=== PATIENT | male | born 1960 | race Caucasian/White ===

== ENCOUNTER 2017-07-14 10:44 | Emergency (ER) | payer SELFPAY ==
[~2017-07-14] VITALS: Ht 177.8 cm; Wt 70.0 kg
[2017-07-14 10:48] VITALS: BP 116/95; PULSE 75; RESP 13; TEMP 98.3; O2SAT 96
[2017-07-14] MEDS ORDERED: CEPH-460 PO (12:13)
[2017-07-14] MEDS ORDERED: BACT800T5 PO (12:13)
--- NOTE | 2017-07-14 12:14 | PD ---
HPI Chief Complaint: Laceration/Skin Injury Time Seen by Provider: 11:20 Travel History International Travel<30 days: No Contact w/Intl Traveler<30days: No Traveled to known affect area: No History of Present Illness HPI 57-year-old male presents emergency department for evaluation of laceration to his right second and third digit dorsal aspect caused by mechanical salvage grinder. Injury occurred yesterday around 3 PM. He did not seek medical attention for financial reasons stating he did not want to incur a hospital bill. Today he reports the area was slightly more swollen and painful prompting his visit. He reports normal sensation and full range of motion of the fingers. Tetanus immunization is unknown. PFS Past Medical History Narrative Medical Epilepsy Social History Tobacco Use: No Allergies-Medications (Allergen,Severity, Reaction): Coded Allergies: No Known Allergies (Unverified , 07/14/17) Reported Meds & Prescriptions Reported Meds & Active Scripts Active Keflex (Cephalexin) 500 Mg Cap 500 Mg PO Q6H 10 Days Bactrim DS (Sulfamethoxazole-Trimethoprim) 800-160 Mg Tab 1 Tab PO BID Review of Systems Except as stated in HPI: all other systems reviewed are Neg General / Constitutional: No: Fever Physical Exam Narrative GENERAL: Well-nourished, well-developed patient. SKIN: Focused skin assessment warm/dry. 2 lacerations to the second and third digit. HEAD: Normocephalic. EYES: No scleral icterus. No injection or drainage. NECK: Supple, trachea midline. No JVD or lymphadenopathy. CARDIOVASCULAR: Regular rate and rhythm without murmurs, gallops, or rubs. RESPIRATORY: Breath sounds equal bilaterally. No accessory muscle use. GASTROINTESTINAL: Abdomen soft, non-tender, nondistended. MUSCULOSKELETAL: No cyanosis, or edema. Right hand: Second digit-2.5 cm laceration over the dorsal aspect base of finger. Wound edges 1 mm separation. No tendon injury visualized. No active bleeding. Patient is able to fully flex and extend the finger. Patient has some difficulty with full extension against resistance due to pain. He reports normal sensation brisk cap refill. Third digit-2.5 cm laceration over the dorsal aspect base of finger. Wound edges 1 mm separation. No tendon injury visualized. No active bleeding. Patient is able to fully flex and extend the finger. Patient has some difficulty with full extension against resistance due to pain. He reports normal sensation brisk cap refill Data Data Last Documented VS Vital Signs Date Time Temp Pulse Resp B/P (MAP) Pulse Ox O2 Delivery O2 Flow Rate FiO2 07/14/17 12:30 07/14/17 10:48 98.3 75 13 96 Orders Orders Tetanus/Diphtheria Tox Adult (Tetanus/Di (07/14/17 12:30) Splint Or Brace Apply/Monitor (07/14/17 12:24) Mandatory Outpatient Referral (07/14/17 12:24) Finger Splint (07/13/17 ) [facility] Medical Decision Making Medical Screen Exam Complete: Yes Emergency Medical Condition: Yes Differential Diagnosis Hand laceration, tendon laceration, retained foreign bodies Narrative Course 57-year-old male presents emergency department for evaluation of laceration to his right second and third digit dorsal aspect caused by a mechanical salvage grinder yesterday 3 PM. Patient is somewhat resistant to treatment today for fear of injuring an expensive hospital bill. Patient is currently uninsured. Patient has 2 lacerations over the dorsal aspect to the base of the second and third digit. The wounds are slightly contaminated with dirt. There is surrounding erythema. He has full flexion and extension of the digits. Patient does experience slightly limited full extension against resistance but patient reports this is due to pain not functionality. He reports yesterday he had full painless range of motion. The wounds do appear infected. I offered to contact the on-call hand surgeon, IV antibiotics and possible admission. Patient declined all of these resources stating that he would not stay in the hospital. He is refusing surgical repair if recommended by the hand surgeon. He would like to try oral antibiotics and follow up outpatient with a hand surgeon. I discussed the risk of spreading infection and possible loss of function of the digits if there is an underlying tendon injury. Patient verbalizes understanding and still wishes to leave the emergency department. Patient will be given a prescription for Bactrim and Keflex. The wounds were extensively irrigated. Finger splints applied. And a mandatory referral for hand surgery follow-up. Patient instructed to return in 2 days for wound recheck. He agrees to this plan Diagnosis Primary Impression: Laceration of finger Qualified Codes: S61.210A - Laceration without foreign body of right index finger without damage to nail, initial encounter Referrals: Hand Surgeon Additional Instructions: Take the antibiotics as prescribed. Cleansed the area with soap and water daily and apply clean dry dressing. Where the finger splints daily until follow-up Do not submerge the wound in water. The hospital will be contacting you to her and arrange an appointment with the [employer] hand surgeon. Return to the emergency department in 2 days for wound recheck. Return to the emergency department prior if he developed new or worsening symptoms. Scripts Cephalexin (Keflex) 500 Mg Cap 500 MG PO Q6H for Infection for 10 Days, #40 CAP 0 Refills Prov: Ashlie Burleson 07/14/17 Sulfamethoxazole-Trimethoprim (Bactrim DS) 800-160 Mg Tab 1 TAB PO BID for Infection, #20 TAB 0 Refills Prov: Ashlie Burleson 07/14/17 Disposition: 01 DISCHARGE HOME Condition: Stable Ashlie Burleson Jul 14, 2017 12:14
[2017-07-14] MEDS ORDERED: TETANUS/DIPHTHERIA TOXOID ADULT 0.5 ML VIAL IM ONE (12:30)
== END 2017-07-14 12:51 | disposition home or self-care (01) ==
LOC: NEPK 10:44
DX: S61.210A Laceration without foreign body of right index finger without damage to nail, initial encounter (principal); S61.212A Laceration without foreign body of right middle finger without damage to nail, initial encounter; G40.909 Epilepsy, unspecified, not intractable, without status epilepticus; Z23 Encounter for immunization; W31.89XA Contact with other specified machinery, initial encounter
CPT/HCPCS: 90471; 90714

== ENCOUNTER 2017-10-19 08:56 | Inpatient (IN) | payer OTHER ==
[~2017-10-19] VITALS: Ht 175.3 cm; Wt 67.5 kg
[2017-10-19] VITALS (21 sets, daily range): BP systolic 59–139; BP diastolic 55–84; PULSE 67–94; RESP 18–29; TEMP 97.9–98.1; O2SAT 94–99
[~2017-10-19 08:56] MED LIST: BACT800T5 PO; CEPH-460 PO
[2017-10-19] MEDS ORDERED: SODIUM CHLORIDE 0.9% FLUSH 10 ML FLUSH IVF PRN (09:15)
[2017-10-19] MEDS ORDERED: methylPREDNISolone SOD SUCC 125 MG/2 ML VIAL IV PUSH ONE (09:15)
[2017-10-19] MEDS ORDERED: SODIUM CHLORID 0.9% 500 ML INJ 500 ML IV ONE (09:15)
[2017-10-19] MEDS: RESP: ALBUTEROL 2.5 MG/IPRATROPIUM 0.5 MG NEB (SCH) INH ×2 (09:26→09:27)
--- NOTE | 2017-10-19 09:27 | PD ---
HPI Chief Complaint: Respiratory Distress Time Seen by Provider: 09:07 Travel History International Travel<30 days: No Contact w/Intl Traveler<30days: No Traveled to known affect area: No History of Present Illness HPI The patient is a 57-year-old male who presents emergency department for shortness of breath of one days duration. The patient states his symptoms started this morning with increased work of breathing and shortness of breath. He does complain of chest tightness, shortness of breath, and wheezing. Patient does have a remote history of bronchitis, denies any known history of COPD. He does have a history of tobacco use. The patient denies any history of pulmonary was on, DVT, congestive heart failure, recent hospitalizations, recent travel, or recent surgeries. He denies any significant lower extremity edema. He denies any history congestive heart failure. The patient's primary physician is Dr. Beckett. The patient denies any fever, chills, or sweats. He does complain of being cold with the recent weather changes. He does note his cough is mostly dry and nonproductive. He denies any body aches, nausea, vomiting, diarrhea, or abdominal pain. He does have a history of previous stent placement, however, states the symptoms were different, associated with chest pain. PFSH Past Medical History Cardiovascular Problems: Yes (STENT PLACED JANUARY 2017) Seizures: Yes Thyroid Disease: Yes Past Surgical History Appendectomy: Yes Tonsillectomy: Yes Social History Alcohol Use: No Tobacco Use: Yes Substance Use: No Allergies-Medications (Allergen,Severity, Reaction): Coded Allergies: No Known Allergies (Unverified , 07/14/17) Reported Meds & Prescriptions Reported Meds & Active Scripts Active Keflex (Cephalexin) 500 Mg Cap 500 Mg PO Q6H 10 Days Bactrim DS (Sulfamethoxazole-Trimethoprim) 800-160 Mg Tab 1 Tab PO BID Review of Systems Except as stated in HPI: all other systems reviewed are Neg General / Constitutional: No: Fever HENT: No: Congestion Cardiovascular: Positive: Chest Pain or Discomfort (tightness) Respiratory: Positive: Cough, Shortness of Breath, Wheezing Gastrointestinal: No: Nausea, Vomiting, Abdominal Pain Musculoskeletal: No: Edema Neurologic: No: Dizziness Physical Exam Narrative GENERAL: Awake, alert, pleasant 57-year-old male who appears his stated age and is in moderate respiratory distress SKIN: Focused skin assessment warm/dry. HEAD: Atraumatic. Normocephalic. EYES: Pupils equal and round. No scleral icterus. No injection or drainage. ENT: No nasal bleeding or discharge. Mucous membranes pink and moist. NECK: Trachea midline. No JVD. CARDIOVASCULAR: Regular, tachycardic with a heart rate over 5. RESPIRATORY: Tachypnea with a respiratory rate of 26. Supraclavicular retractions. Type breath sounds with prolonged expiratory phase and wheezing. GASTROINTESTINAL: Abdomen soft, non-tender, nondistended. MUSCULOSKELETAL: No obvious deformities. No clubbing. No cyanosis. No edema. NEUROLOGICAL: Awake and alert. No obvious cranial nerve deficits. Motor grossly within normal limits. Normal speech. PSYCHIATRIC: Appropriate mood and affect; insight and judgment normal. Data Data Last Documented VS Vital Signs Date Time Temp Pulse Resp B/P (MAP) Pulse Ox O2 Delivery O2 Flow Rate FiO2 10/19/17 10:01 98 40 10/19/17 09:23 Nasal Cannula 6.00 10/19/17 08:58 97.9 122/84 (97) Orders Orders Complete Blood Count With Diff (10/19/17 09:14) Comprehensive Metabolic Panel (10/19/17 09:14) B-Type Natriuretic Peptide (10/19/17 09:14) Magnesium (Mg) (10/19/17 09:14) Ckmb (Isoenzyme) Profile (10/19/17 09:14) Troponin I (10/19/17 09:14) Iv Access Insert/Monitor (10/19/17 09:14) Electrocardiogram (10/19/17 09:14) Ecg Monitoring (10/19/17 09:14) Oximetry (10/19/17 09:14) Oxygen Administration (10/19/17 09:14) Chest, Single Ap (10/19/17 09:14) Sodium Chloride 0.9% Flush (Ns Flush) (10/19/17 09:15) Methylprednisolone So Succ Inj (Solumedr (10/19/17 09:15) Albuterol-Ipratropium Neb (Duoneb Neb) (10/19/17 09:15) Sodium Chlorid 0.9% 500 Ml Inj (Ns 500 M (10/19/17 09:15) Resp Bipap / Cpap Non Invas Vt (10/19/17 ) Aspirin Chew (Aspirin Chew) (10/19/17 10:30) Furosemide Inj (Lasix Inj) (10/19/17 10:30) Enoxaparin Inj (Lovenox Inj) (10/19/17 11:30) Consult Cardiology (10/19/17 ) (Hub Use Only)Inp Phy Cons/Ref (10/19/17 ) Admit Order (Ed Use Only) (10/19/17 11:40) Labs Laboratory Tests Test 10/19/17 09:21 White Blood Count 15.5 TH/MM3 Red Blood Count 4.58 MIL/MM3 Hemoglobin 15.7 GM/DL Hematocrit 47.3 % Mean Corpuscular Volume 103.3 FL Mean Corpuscular Hemoglobin 34.4 PG Mean Corpuscular Hemoglobin Concent 33.2 % Red Cell Distribution Width 15.0 % Platelet Count 225 TH/MM3 Mean Platelet Volume 8.7 FL Neutrophils (%) (Auto) 79.3 % Lymphocytes (%) (Auto) 15.5 % Monocytes (%) (Auto) 3.0 % Eosinophils (%) (Auto) 1.2 % Basophils (%) (Auto) 1.0 % Neutrophils # (Auto) 12.3 TH/MM3 Lymphocytes # (Auto) 2.4 TH/MM3 Monocytes # (Auto) 0.5 TH/MM3 Eosinophils # (Auto) 0.2 TH/MM3 Basophils # (Auto) 0.2 TH/MM3 CBC Comment DIFF FINAL Differential Comment Blood Urea Nitrogen 20 MG/DL Creatinine 1.19 MG/DL Random Glucose 248 MG/DL Total Protein 6.5 GM/DL Albumin 3.1 GM/DL Calcium Level 8.0 MG/DL Magnesium Level 2.1 MG/DL Alkaline Phosphatase 133 U/L Aspartate Amino Transf (AST/SGOT) 212 U/L Alanine Aminotransferase (ALT/SGPT) 289 U/L Total Bilirubin 0.3 MG/DL Sodium Level 140 MEQ/L Potassium Level 3.8 MEQ/L Chloride Level 107 MEQ/L Carbon Dioxide Level 24.3 MEQ/L Anion Gap 9 MEQ/L Estimat Glomerular Filtration Rate 63 ML/MIN Total Creatine Kinase 98 U/L Troponin I 0.85 NG/ML B-Type Natriuretic Peptide 806 PG/ML MDM Medical Decision Making Medical Screen Exam Complete: Yes Emergency Medical Condition: Yes Medical Record Reviewed: Yes Interpretation(s) Last Impressions Chest X-Ray 10/19/17913 Signed Impressions: Service Date/Time: October 09:23 - CONCLUSION: 1. Cardiomegaly and findings of congestive heart failure. Cruz Lovell MD Laboratory Tests Test 10/19/17 09:21 White Blood Count 15.5 TH/MM3 Red Blood Count 4.58 MIL/MM3 Hemoglobin 15.7 GM/DL Hematocrit 47.3 % Mean Corpuscular Volume 103.3 FL Mean Corpuscular Hemoglobin 34.4 PG Mean Corpuscular Hemoglobin Concent 33.2 % Red Cell Distribution Width 15.0 % Platelet Count 225 TH/MM3 Mean Platelet Volume 8.7 FL Neutrophils (%) (Auto) 79.3 % Lymphocytes (%) (Auto) 15.5 % Monocytes (%) (Auto) 3.0 % Eosinophils (%) (Auto) 1.2 % Basophils (%) (Auto) 1.0 % Neutrophils # (Auto) 12.3 TH/MM3 Lymphocytes # (Auto) 2.4 TH/MM3 Monocytes # (Auto) 0.5 TH/MM3 Eosinophils # (Auto) 0.2 TH/MM3 Basophils # (Auto) 0.2 TH/MM3 CBC Comment DIFF FINAL Differential Comment Blood Urea Nitrogen 20 MG/DL Creatinine 1.19 MG/DL Random Glucose 248 MG/DL Total Protein 6.5 GM/DL Albumin 3.1 GM/DL Calcium Level 8.0 MG/DL Magnesium Level 2.1 MG/DL Alkaline Phosphatase 133 U/L Aspartate Amino Transf (AST/SGOT) 212 U/L Alanine Aminotransferase (ALT/SGPT) 289 U/L Total Bilirubin 0.3 MG/DL Sodium Level 140 MEQ/L Potassium Level 3.8 MEQ/L Chloride Level 107 MEQ/L Carbon Dioxide Level 24.3 MEQ/L Anion Gap 9 MEQ/L Estimat Glomerular Filtration Rate 63 ML/MIN Total Creatine Kinase 98 U/L Troponin I 0.85 NG/ML B-Type Natriuretic Peptide 806 PG/ML EKG reveals normal sinus rhythm with a rate 89. Mild ST depression noted in lead V3. Low QRS voltage in the extremity leads. Differential Diagnosis Differential diagnosis includes COPD exacerbation, bronchitis, pneumonia, pleural effusion, congestive heart failure, pulmonary embolism, pericardial effusion. Narrative Course IV was established, labs are drawn and sent, and the patient was placed on cardiac telemetry monitoring and continuous pulse oximetry monitoring. Chest x- ray was obtained. The patient was administered Solu-Medrol 125 mg intravenously and duo nebs 3. The patient's chest x-ray appears to have pulmonary edema consistent with congestive heart failure. Therefore, the patient was administered aspirin 162 mg orally. The patient denies chest pain, does state he has shortness of breath. Troponin is positive at 0.85. The patient cannot recall the name of his guest service supervisor to place the stents in last January at [facility]. Therefore, we attempted to obtain records from [facility]. The patient appears to have acute congestive heart failure with elevated troponin and will require admission. The patient is on BiPAP with improvement of his symptoms, the patient will be admitted to [facility]. EKG did reveal mild ST depression V3 but no other changes. A call was placed to the on-call guest service supervisor and to the on-call medical service for admission. I discussed the patient with the on-call guest service supervisor, Dr. Montenegro, who agrees with [employer]. The patient's symptoms did improve, he was taken off of BiPAP and reevaluated. Patient will be admitted to [facility], the on-call medical service. Critical Care Narrative Aggregate critical care time was 35 minutes. Time to perform other separately billable procedures was not included in the critical care time. My time did not include minutes spent treating any other patients simultaneously or on activities that did not directly contribute to the patient's treatment. The services I provided to this patient were to treat and/or prevent clinically significant deterioration that could result in: Anoxia, hypoxia, arrhythmia, congestive heart failure, pulmonary edema, cardiomyopathy, . I provided critical care services requiring my management, as noted below: Chart data review, documentation time, medication orders and management, vital sign assessments/reviewing monitor data, ordering and reviewing lab tests, ordering and interpreting/reviewing x-rays and diagnostic studies, care of the patient and discussion of the patient with the admitting physicians. Physician Communication Physician Communication A call was placed to the on-call guest service supervisor. I discussed the patient with Dr. Montenegro who agrees with [employer]. A call was placed to [facility]. I discussed the patient with Dr. Ladd who agrees with admission. Diagnosis Primary Impression: Congestive heart failure Qualified Codes: I50.9 - Heart failure, unspecified Additional Impression: NSTEMI (non-ST elevated myocardial infarction) Admitting Information Admitting Physician Requests: Admit Condition: Stable Ousmane Barton MD Oct 19, 2017 09:27
[2017-10-19 09:34] LABS: AUTOMATED NEUTROPHIL # 12.3 TH/MM3 (1.8-7.7); BASOPHIL # 0.2 TH/MM3 (0-0.2); EOSINOPHIL # 0.2 TH/MM3 (0-0.4); EOSINOPHIL % 1.2 % (0.0-4.0); HEMATOCRIT 47.3 % (39.0-51.0); HEMOGLOBIN 15.7 GM/DL (13.0-17.0); LYMPH % 15.5 % (9.0-44.0); LYMPHOCYTE # 2.4 TH/MM3 (1.0-4.8); MEAN CELL VOLUME 103.3 FL (80.0-100.0); MEAN CORPUSCULAR HEMOGLOBIN 34.4 PG (27.0-34.0); MEAN CORPUSCULAR HGB CONC 33.2 % (32.0-36.0); MEAN PLATELET VOLUME 8.7 FL (7.0-11.0); MONOCYTE # 0.5 TH/MM3 (0-0.9); NEUT % 79.3 % (16.0-70.0); PLATELET COUNT 225 TH/MM3 (150-450); RED BLOOD COUNT 4.58 MIL/MM3 (4.50-5.90); WHITE BLOOD COUNT 15.5 TH/MM3 (4.0-11.0)
--- NOTE | 2017-10-19 09:45 | RADRPT ---
EXAM DATE/TIME: 10/19/2017 09:23 [place] COMPARISON: No previous studies available for comparison. INDICATIONS : Short of breath. Cough. MEDICAL HISTORY : Smoking. SURGICAL HISTORY : None. ENCOUNTER: Initial ACUITY: 2 days PAIN SCORE: 0/10 LOCATION: Bilateral chest FINDINGS: The cardiac silhouette is enlarged in transverse diameter. There are findings of congestive heart my lure with interstitial and alveolar opacity bilaterally. No pleural effusions are identified. CONCLUSION: 1. Cardiomegaly and findings of congestive heart failure. Cruz Lovell MD on October 19, 2017 at 9:43 Board Certified Radiologist. This report was verified electronically.
[2017-10-19 10:19] LABS: ALBUMIN 3.1 GM/DL (3.4-5.0); ALKALINE PHOSPHATASE 133 U/L (45-117); ALT (GPT) 289 U/L (12-78); AST (GOT) 212 U/L (15-37); BICARBONATE 24.3 MEQ/L (21.0-32.0); BLOOD UREA NITROGEN 20 MG/DL (7-18); CHLORIDE 107 MEQ/L (98-107); CREATININE 1.19 MG/DL (0.60-1.30); GLOMERULAR FILTRATION RATE 63 ML/MIN (>89); GLUCOSE,RANDOM 248 MG/DL (74-106); MAGNESIUM 2.1 MG/DL (1.5-2.5); SODIUM (NA) 140 MEQ/L (136-145); TOTAL BILIRUBIN ADULT 0.3 MG/DL (0.2-1.0); TOTAL PROTEIN 6.5 GM/DL (6.4-8.2)
[2017-10-19 10:29] LABS: TROPONIN I 0.85 NG/ML (0.02-0.05)
[2017-10-19] MEDS ORDERED: ASPIRIN 81 MG CHEW TAB CHEW ONE (10:30)
[2017-10-19] MEDS ORDERED: FUROSEMIDE 40 MG/4 ML VIAL IV PUSH ONE (10:30)
[2017-10-19] MEDS ORDERED: ENOXAPARIN SODIUM 80 MG/0.8 ML SYRINGE SQ ONE (11:30)
[2017-10-19] MEDS ORDERED: FLUMAZENIL 0.5 MG/5 ML VIAL IV PUSH PRN (12:30)
[2017-10-19] MEDS ORDERED: oxyCODONE/ACETAMINOPHEN 10 MG/325 MG TAB PO PRN (12:30)
[2017-10-19] MEDS ORDERED: ONDANSETRON HCL 4 MG/2 ML VIAL IVP PRN (12:30)
[2017-10-19] MEDS ORDERED: SODIUM CHLORIDE 0.9% FLUSH 10 ML FLUSH IV FLUSH PRN ×2 (12:30)
[2017-10-19] MEDS ORDERED: cloNIDine HCL 0.1 MG TAB PO PRN (12:30)
[2017-10-19] MEDS ORDERED: RESP: ALBUTEROL 2.5 MG/IPRATROPIUM 0.5 MG NEB (PRN) NEB (12:30)
[2017-10-19] MEDS ORDERED: ALPRAZolam 0.25 MG TAB PO PRN (12:30)
[2017-10-19] MEDS ORDERED: LORazepam 1 MG TAB PO PRN (12:30)
[2017-10-19] MEDS ORDERED: oxyCODONE/ACETAMINOPHEN 5 MG/325 MG TAB PO PRN (12:30)
[2017-10-19] MEDS ORDERED: MORPHINE SULFATE 2 MG/ML INJ IV PUSH PRN ×2 (12:30)
[2017-10-19] MEDS ORDERED: METOCLOPRAMIDE HCL 10 MG/2 ML VIAL IV PUSH PRN (12:30)
[2017-10-19] MEDS ORDERED: SENNOSIDES 8.6 MG TAB PO PRN (12:30)
[2017-10-19] MEDS ORDERED: ACETAMINOPHEN 325 MG TAB PO PRN ×3 (12:30)
[2017-10-19] MEDS ORDERED: LORazepam 2 MG/ML VIAL IV PUSH PRN ×4 (12:30)
[2017-10-19] MEDS ORDERED: NITROGLYCERIN 0.4 MG SL 25 TABS/BTL SL PRN (12:30)
[2017-10-19] MEDS ORDERED: ZOLPIDEM TARTRATE 5 MG TAB PO PRN (12:30)
[2017-10-19] MEDS ORDERED: LORazepam 2 MG TAB PO PRN (12:30)
[2017-10-19] MEDS ORDERED: HALOPERIDOL LACTATE 5 MG/ML AMP IM PRN (12:30)
[2017-10-19] MEDS ORDERED: NALOXONE HCL 0.4 MG/ML AMP IV PUSH PRN (12:30)
[2017-10-19] MEDS ORDERED: LACTULOSE SYRUP 20 GM/30 ML CUP PO PRN (12:30)
[2017-10-19] MEDS ORDERED: MAGNESIUM HYDROXIDE SUSP 30 ML CUP PO PRN (12:30)
[2017-10-19] MEDS ORDERED: BISACODYL 10 MG SUPP RECTAL PRN (12:30)
--- NOTE | 2017-10-19 12:45 | HHI.HP ---
HPI Service [facility] Primary Care Physician Unknown ADDI Admission Diagnosis congestive heart failure, NSTEMI Diagnoses: (1) Tobacco abuse Diagnosis: Secondary (2) Noncompliance Diagnosis: Secondary (3) COPD (chronic obstructive pulmonary disease) Diagnosis: Secondary (4) Seizure Diagnosis: Secondary (5) Hypothyroidism Diagnosis: Secondary (6) Coronary artery disease Diagnosis: Secondary (7) NSTEMI (non-ST elevated myocardial infarction) Diagnosis: Principal (8) Congestive heart failure Diagnosis: Principal Chief Complaint: Shortness of breath/respiratory distress Travel History International Travel<30 Days: No Contact w/Intl Traveler <30 Da: No Traveled to Known Affected Are: No History of Present Illness Patient is a 57-year-old gentleman. He presented to the emergency department here at [facility] chief complaint of shortness of breath for 1 day. Patient states his symptoms started this morning with increased work of breathing and shortness of breath. Patient complained of chest tightness, shortness of breath, and wheezing. Does have a history of bronchitis.. Denies any known history of COPD. Does has a history of tobacco use still actively smoking used to smoke about 2 packs now smokes only about one pack per day. Denies any history of pulmonary embolism, denies any history of DVT, denies any history of congestive heart failure, or any recent hospitalizations. Denies any edema. Denies any fever chills or sweats. Does have a positive cough, denies any body aches or nausea, vomiting, diarrhea, or abdominal pain. He has history of a previous cardiac stent placed at [facility] in January 2017 Was supposed to be on blood thinners but are not sure if he is actually taking anything for this Review of Systems Constitutional: COMPLAINS OF: Fatigue, Chills, DENIES: Diaphoretic episodes, Fever, Weight gain, Weight loss, Dizziness, Change in appetite, Night Sweats Endocrine: DENIES: Heat/cold intolerance, Polydipsia, Polyuria, Polyphagia Eyes: DENIES: Blurred vision, Diplopia, Eye inflammation, Eye pain, Vision loss , Photosensitivity Ears, nose, mouth, throat: DENIES: Tinnitus, Hearing loss, Vertigo, Nasal discharge, Oral lesions, Throat pain Respiratory: COMPLAINS OF: Cough, Wheezing, Sputum production, Shortness of breath, DENIES: Apneas, Snoring, Hemoptysis Cardiovascular: COMPLAINS OF: Chest pain, Dyspnea on Exertion, Orthopnea, DENIES: Palpitations, Syncope, PND, Lower Extremity Edema Gastrointestinal: DENIES: Abdominal pain, Black stools, Bloody stools, Constipation Genitourinary: DENIES: Sexual dysfunction, Urinary frequency, Urinary incontinence, Urgency Musculoskeletal: DENIES: Joint pain, Muscle aches, Stiffness, Joint Swelling, Back pain Integumentary: DENIES: Abnormal pigmentation, Nail changes, Pruritus, Rash Hematologic/lymphatic: DENIES: Bruising, Lymphadenopathy Immunologic/allergic: DENIES: Eczema, Urticaria Neurologic: COMPLAINS OF: Seizures, DENIES: Abnormal gait, Headache, Localized weakness, Paresthesias, Speech Problems, Tremor, Poor Balance Psychiatric: DENIES: Anxiety, Confusion, Mood changes, Depression, Hallucinations, Agitation, Suicidal Ideation Except as stated in HPI: all other systems reviewed are Neg Past Family Social History Past Medical History Coronary artery disease with history of stent Seizure disorder Hypothyroidism Noncompliance Past Surgical History Coronary artery stent Appendectomy tonsillectomy Reported Medications Reported Meds & Active Scripts Active Keflex (Cephalexin) 500 Mg Cap 500 Mg PO Q6H 10 Days Bactrim DS (Sulfamethoxazole-Trimethoprim) 800-160 Mg Tab 1 Tab PO BID Allergies: Coded Allergies: No Known Allergies (Unverified , 07/14/17) Active Ordered Medications Current Medications Sodium Chloride (NS Flush) 2 ml UNSCH PRN IVF FLUSH AFTER USING IV ACCESS; Start 10/19/17 at 09:15 Methylprednisolone Sodium Succinate (SoluMEDROL INJ) 125 mg ONCE ONCE IV PUSH Last administered on 10/19/17at 10:50; Start 10/19/17 at 09:15; Stop 10/19/17 at 09: 17; Status DC Albuterol/ Ipratropium (Duoneb Neb) 1 ampule Q15M INH Last administered on at 09:27; Start 10/19/17 at 09:15; Stop 10/19/17 at 09:46; Status DC Sodium Chloride 500 ml @ 500 mls/hr BOLUS ONCE IV Last administered on at 10:49; Start 10/19/17 at 09:15; Stop 10/19/17 at 10:14; Status DC Aspirin (Aspirin Chew) 162 mg ONCE ONCE CHEW Last administered on 10/19/17at 11: 17; Start 10/19/17 at 10:30; Stop 10/19/17 at 10:31; Status DC Furosemide (Lasix Inj) 40 mg ONCE ONCE IV PUSH Last administered on 10/19/17at 11:18; Start 10/19/17 at 10:30; Stop 10/19/17 at 10:31; Status DC Enoxaparin Sodium (Lovenox Inj) 70 mg ONCE ONCE SQ ; Start 10/19/17 at 11:30; Stop 10/19/17 at 11:31; Status DC Social History Smokes at least a pack per day had previously been smoking up to 2 Denies any alcohol or illicits Physical Exam Vital Signs Vital Signs Date Time Temp Pulse Resp B/P (MAP) Pulse Ox O2 Delivery O2 Flow Rate FiO2 10/19/17 10:01 98 40 10/19/17 09:23 94 Nasal Cannula 6.00 10/19/17 09:12 95 Nasal Cannula 6.00 10/19/17 09:09 92 Nasal Cannula 6.00 10/19/17 08:58 97.9 122/84 (97) Room Air Physical Exam GENERAL: This is a well-nourished, well-developed patient, in moderate distress. SKIN: No rashes, ecchymoses or lesions. Cool and dry. HEAD: Atraumatic. Normocephalic. No temporal or scalp tenderness. EYES: Pupils equal round and reactive. Extraocular motions intact. No scleral icterus. No injection or drainage. ENT: Nose without bleeding, purulent drainage or septal hematoma. Throat without erythema, tonsillar hypertrophy or exudate. Uvula midline. Airway patent. NECK: Trachea midline. No JVD or lymphadenopathy. Supple, nontender, no meningeal signs. CARDIOVASCULAR: Regular rate and rhythm without murmurs, gallops, or rubs. S1 and S2 no S3 or S4 RESPIRATORY: Clear to auscultation. Breath sounds equal bilaterally. Positive wheezes some rhonchi and some rales at bases. GASTROINTESTINAL: Abdomen soft, non-tender, nondistended. No hepato-splenomegaly , or palpable masses. No guarding. MUSCULOSKELETAL: Extremities without clubbing, cyanosis, or edema. No joint tenderness, effusion, or edema noted. No calf tenderness. Negative Homans sign bilaterally. NEUROLOGICAL: Awake and alert. Cranial nerves II through XII intact. Motor and sensory grossly within normal limits. 4 out of 5 muscle strength in all muscle groups. Normal speech. Insight and judgment is limited Mood and behaviors appropriate Laboratory Laboratory Tests Test 10/19/17 09:21 White Blood Count 15.5 Red Blood Count 4.58 Hemoglobin 15.7 Hematocrit 47.3 Mean Corpuscular Volume 103.3 Mean Corpuscular Hemoglobin 34.4 Mean Corpuscular Hemoglobin Concent 33.2 Red Cell Distribution Width 15.0 Platelet Count 225 Mean Platelet Volume 8.7 Neutrophils (%) (Auto) 79.3 Lymphocytes (%) (Auto) 15.5 Monocytes (%) (Auto) 3.0 Eosinophils (%) (Auto) 1.2 Basophils (%) (Auto) 1.0 Neutrophils # (Auto) 12.3 Lymphocytes # (Auto) 2.4 Monocytes # (Auto) 0.5 Eosinophils # (Auto) 0.2 Basophils # (Auto) 0.2 CBC Comment DIFF FINAL Differential Comment Blood Urea Nitrogen 20 Creatinine 1.19 Random Glucose 248 Total Protein 6.5 Albumin 3.1 Calcium Level 8.0 Magnesium Level 2.1 Alkaline Phosphatase 133 Aspartate Amino Transf (AST/SGOT) 212 Alanine Aminotransferase (ALT/SGPT) 289 Total Bilirubin 0.3 Sodium Level 140 Potassium Level 3.8 Chloride Level 107 Carbon Dioxide Level 24.3 Anion Gap 9 Estimat Glomerular Filtration Rate 63 Total Creatine Kinase 98 Troponin I 0.85 B-Type Natriuretic Peptide 806 Result Diagram: 10/19/1792010/19/17920 Imaging Last Impressions Chest X-Ray 10/19/17913 Signed Impressions: Service Date/Time: October 09:23 - CONCLUSION: 1. Cardiomegaly and findings of congestive heart failure. MD Josue Vazquez VTE Risk Assessment Josue VTE Risk Assessment: Mod/High Risk (score >= 2) Caprini Risk Assessment Model Point Value = 1 Point Value = 2 Point Value = 3 Point Value = 5 Age 41-60 Minor surgery BMI > 25 kg/m2 Swollen legs Varicose veins or History of unexplained or recurrent spontaneous Oral contraceptives or hormone replacement Sepsis (< 1 month) Serious lung disease, including pneumonia (< 1 month) Abnormal pulmonary function Acute myocardial infarction Congestive heart failure (< 1 month) History of inflammatory bowel disease Medical patient at bed rest Age 61-74 Arthroscopic surgery Major open surgery (> 45 min) Laparoscopic surgery (> 45 min) Malignancy Confined to bed (> 72 hours) Immobilizing plaster cast Central venous access Age >= 75 History of VTE Family history of VTE Factor V Leiden Prothrombin [id number] Lupus anticoagulant Anticardiolipin antibodies Elevated serum homocysteine Heparin-induced thrombocytopenia Other congenital or acquired thrombophilia Stroke (< 1 month) Elective arthroplasty Hip, pelvis, or leg fracture Acute spinal cord injury (< 1 month) Prophylaxis Regimen Total Risk Factor Score Risk Level Prophylaxis Regimen 0-1 Low Early ambulation 2 Moderate Order ONE of the following: *Sequential Compression Device (SCD) *Heparin 5000 units SQ BID 3-4 Higher Order ONE of the following medications: *Heparin 5000 units SQ TID *Enoxaparin/Lovenox 40 mg SQ daily (WT < 150 kg, CrCl > 30 mL/min) *Enoxaparin/Lovenox 30 mg SQ daily (WT < 150 kg, CrCl > 10-29 mL/min) *Enoxaparin/Lovenox 30 mg SQ BID (WT < 150 kg, CrCl > 30 mL/min) AND/OR *Sequential Compression Device (SCD) 5 or more Highest Order ONE of the following medications: *Heparin 5000 units SQ TID (Preferred with Epidurals) *Enoxaparin/Lovenox 40 mg SQ daily (WT < 150 kg, CrCl > 30 mL/min) *Enoxaparin/Lovenox 30 mg SQ daily (WT < 150 kg, CrCl > 10-29 mL/min) *Enoxaparin/Lovenox 30 mg SQ BID (WT < 150 kg, CrCl > 30 mL/min) AND *Sequential Compression Device (SCD) Assessment and Plan Assessment and Plan Congestive heart failure Will diurese with Lasix will replace with potassium We'll get an echocardiogram We'll trend troponins Consult cardiology a.m. labs COPD continue on Mucinex Continue on steroids Continue on DuoNeb's Hold off on antibiotics at this Hypothyroidism check TSH and free T4 obtain home medication dose of Synthroid Seizure disorder check a Dilantin level obtained his home dose of Dilantin and restart if able Non-ST elevation KS consult cardiology Trend troponins Echo Aspirin and Plavix and Lovenox Tobacco abuse recommend smoking cessation NicoDerm patch 14 mg daily Dyslipidemia can continue on Lipitor Noncompliance recommend patient take his medications and follow-up after discharge - Consult case management DVT prophylaxis with Lovenox GI prophylaxis with Pepcid Code Status FULL CODE Discussed Condition With PT AND RN AND ER PHYSICIAN Physician Certification 2 Midnight Certification Type: Admission for Inpatient Services Order for Inpatient Services The services are ordered in accordance with Medicare regulations or non- Medicare payer requirements, as applicable. In the case of services not specified as inpatient-only, they are appropriately provided as inpatient services in accordance with the 2-midnight benchmark. Estimated LOS (days): 3 3 days is the estimated time the patient will need to remain in the hospital, assuming treatment plan goals are met and no additional complications. Post-Hospital Plan: Not yet determined Problem Qualifiers (1) Congestive heart failure: Qualified Codes: I50.9 - Heart failure, unspecified Vinod Ladd DO Oct 19, 2017 12:45
[2017-10-19] MEDS ORDERED: NICOTINE 14 MG/24 HR PATCH T-DERMAL ONE (13:00)
[2017-10-19] MEDS ORDERED: LEVO88TA2 PO (13:13)
[2017-10-19] MEDS ORDERED: DILA100C PO (13:13)
[2017-10-19] MEDS ORDERED: CLOPIDOGREL 300 MG TAB PO ONE (14:00)
[2017-10-19] MEDS: FAMOTIDINE 20 MG TAB PO SCH ×2 (14:35→21:33)
[2017-10-19] MEDS: guaiFENesin E.R. 600 MG TAB PO SCH ×2 (14:35→21:38)
[2017-10-19] MEDS: NITROGLYCERIN 2% OINT 1 GM PACKET TOP SCH ×2 (14:36→21:31)
[2017-10-19] MEDS: CLOPIDOGREL 75 MG TAB PO SCH (14:36)
--- NOTE | 2017-10-19 15:08 | ECHRPT ---
Indication: CONCLUSIONS The left ventricular systolic function is severely reduced with an estimated ejection fraction in th e range of 25-30%. Wall thickness is measured at the upper limits of normal. Mildly dilated left ventricle. Global hypokinesis worse of the inferoposterior kaur. Mild mitral valve regurgitation. There is moderate tricuspid regurgitation. The estimated pulmonary arterial pressure is 61 mmHg. BP: / HR: 83 Rhythm: Sinus MEASUREMENTS (Male / Female) Normal Values Technical Quality:Good 2D ECHO LV Diastolic Diameter PLAX 5.3 cm 4.2 - 5.9 / 3.9 - 5.3 cm LV Systolic Diameter PLAX 4.4 cm IVS Diastolic Thickness 1.0 cm 0.6 - 1.0 / 0.6 - 0.9 cm LVPW Diastolic Thickness 1.0 cm 0.6 - 1.0 / 0.6 - 0.9 cm LV Relative Wall Thickness 0.4 LVOT Diameter 1.8 cm M-MODE Aortic Root Diameter MM 3.0 cm LA Systolic Diameter MM 4.2 cm LA Ao Ratio MM 1.4 DOPPLER AV Peak Velocity 81.9 cm/s AV Peak Gradient 2.7 mmHg LVOT Peak Velocity 73.1 cm/s LVOT Peak Gradient 2.1 mmHg AV Area Cont Eq pk 2.3 cm MR Peak Velocity 314.0 cm/s MR Peak Gradient 39.4 mmHg LV E' Lateral Velocity 6.6 cm/s LV E' Septal Velocity 5.7 cm/s TR Peak Velocity 357.0 cm/s TR Peak Gradient 51.0 mmHg Right Atrial Pressure 10.0 mmHg Pulmonary Artery Systolic Pressu 61.0 mmHg Right Ventricular Systolic Press 61.0 mmHg PV Peak Velocity 86.9 cm/s PV Peak Gradient 3.0 mmHg FINDINGS LEFT VENTRICLE The left ventricular systolic function is severely reduced with an estimated ejection fraction in th e range of 25-30%. Wall thickness is measured at the upper limits of normal. Mildly dilated left ventricle. Global hypokinesis worse of the inferoposterior kaur. RIGHT VENTRICLE Normal right ventricular size and systolic function. LEFT ATRIUM The left atrial size is normal. RIGHT ATRIUM The right atrial size is normal. ATRIAL SEPTUM Normal atrial septal thickness without atrial level shunting by limited color doppler interrogation. AORTA The aortic root and proximal ascending aorta are normal in size on limited imaging. MITRAL VALVE Mild mitral valve regurgitation. AORTIC VALVE Trileaflet aortic valve. No aortic valve stenosis or regurgitation. TRICUSPID VALVE There is moderate tricuspid regurgitation. The estimated pulmonary arterial pressure is 61 mmHg. PULMONARY VALVE No pulmonary valve regurgitation or stenosis. VESSELS The inferior vena cava is normal in size. PERICARDIUM No pericardial effusion. Flakito Montenegro MD Edited by: [employer] (Electronically Signed) Final Date:19 October 2017 14:48 Amended: 19 October 2017 15:07
--- NOTE | 2017-10-19 15:09 | MB ---
cc: JUANA MOELLER M.D. DATE OF CONSULTATION: 10/19/2017 REASON FOR CONSULTATION Evaluation of shortness of breath, CHF. HISTORY OF PRESENT ILLNESS Cornell Leyva is a 57-year-old man admitted to the hospital with congestive heart failure. The patient has known heart disease. He was hospitalized at [facility] in January. He had a cardiac catheterization by Dr. Alcazar, February 06. At that time his coronary circulation was left dominant and his left circumflex artery was totally occluded. This was stented according to the report with a Premiere 3.0 x 34 mm stent at 12 atmospheres. He also had balloon angioplasty of the marginal branch with a 2-1/2 mm balloon. The patient took clopidogrel for 1 month and he did not get it refilled. He complained about the cost but never bothered to check with Susan Madrid his primary care nurse practitioner to see about getting it refilled. Of note, during that admission he initially presented with atrial fibrillation and a heart rate of 110. He is a lifelong smoker with a family history of heart disease and continues to smoke. He has not given up smoking despite having the heart attack and having the stent. I asked him about chest pain or chest tightness or chest heaviness, I could not elicit any of that from him despite things he said to the other doctors who had been in to see him. PAST MEDICAL HISTORY Past medical history includes: 1. A seizure disorder which he is treated with Keppra. 2. Hypothyroidism. PAST SURGICAL HISTORY 1. Appendectomy. 2. Tonsillectomy. 3. Adenoidectomy. 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 He is single. He continues to smoke marijuana as well as cigarettes. FAMILY HISTORY His father had coronary artery disease in his 60s. MEDICATION Medications are charted. PHYSICAL EXAMINATION GENERAL: Adequately developed, adequately nourished white male, no acute distress. HEENT: Exam notable for poor dentition. NECK: Positive for JVD but no bruits. CHEST: Shows diminished breath sounds and wheezing at the bases. CARDIAC: S1 and S2, S3, regular rate and rhythm. There is no murmur. ABDOMEN: Abdomen is soft. EXTREMITIES: Reveal no peripheral edema. NEUROLOGIC: Neurologically he is alert. EKG Shows sinus rhythm with very low limb lead voltage, left atrial abnormality, mild diffuse ST changes in the precordial leads. IMAGING STUDIES Chest x-ray showing CHF. LABORATORY BUN 20, creatinine 1.19, AST elevated at 212, ALT elevated at 289, alkaline phosphatase elevated at 133. Troponin elevated at 0.85, BNP 806, albumin 3.1. IMPRESSION Noncompliant 57-year-old man with known ischemic heart disease but never bothered to quit smoking or continue getting his meds refilled. I think it is very likely that his stent of the circumflex is closed, considering it was a completely total vessel before it was stented, at this point there is very little to be gained for trying to open it again. His low limb lead voltage makes one suspicious that his LV function has taken a severe decline. RECOMMENDATIONS I am going to start WILVER inhibitors in addition to Beta-srinivasa, aspirin and Plavix and statin. Will get an echo Doppler to assess LV function. Further therapy to be determined. MD BRANDON Paul/LISA /1:42 PM /2:19 PM
[2017-10-19] MEDS: LISINOPRIL 5 MG TAB PO SCH (15:48)
[2017-10-19] MEDS: RESP: ALBUTEROL 2.5 MG/IPRATROPIUM 0.5 MG NEB (SCH) NEB ×2 (16:51→20:53)
[2017-10-19] MEDS: FUROSEMIDE 40 MG/4 ML VIAL IV PUSH SCH (18:00)
[2017-10-19] MEDS: methylPREDNISolone SOD SUCC 40 MG/1 ML VIAL IV PUSH SCH ×2 (18:08→23:36)
[2017-10-19 20:50] LABS: TROPONIN I 2.34 NG/ML (0.02-0.05)
[2017-10-19] MEDS: CARVEDILOL 3.125 MG TAB PO SCH (21:00)
[2017-10-19] MEDS: DOCUSATE SODIUM 50 MG/SENNA 8.6 MG TAB PO SCH (21:00)
[2017-10-19] MEDS: SODIUM CHLORIDE 0.9% FLUSH 10 ML FLUSH IV FLUSH SCH (21:00)
[2017-10-19] MEDS ORDERED: SODIUM CHLORIDE 0.9% FLUSH 10 ML FLUSH IV FLUSH SCH (21:00)
[2017-10-19] MEDS: ATORVASTATIN 10 MG TAB PO SCH (21:32)
[2017-10-19] MEDS: ENOXAPARIN SODIUM 80 MG/0.8 ML SYRINGE SQ SCH (21:33)
--- NOTE | 2017-10-19 22:33 | EKG ---
Date Performed: 10/19/2017 Time Performed: 11:11:38 PTAGE: 57 years EKG: Sinus rhythm MARKED LEFT AXIS DEVIATION LOW QRS VOLTAGE IN EXTREMITY LEADS ST DEPRESSION, CONSIDER SUBENDOCARDIAL INJURY ABNORMAL ECG NO PREVIOUS TRACING DOCTOR: Andre Mcdonald Interpretating Date/Time 10/19/2017 22:33:03
[2017-10-20] VITALS (27 sets, daily range): BP systolic 85–96; BP diastolic 50–62; PULSE 61–88; RESP 18; TEMP 97.3–98.2; O2SAT 94–99
[2017-10-20 02:14] LABS: ALKALINE PHOSPHATASE 108 U/L (45-117); ALT (GPT) 210 U/L (12-78); AST (GOT) 76 U/L (15-37); BICARBONATE 25.7 MEQ/L (21.0-32.0); BLOOD UREA NITROGEN 21 MG/DL (7-18); CHLORIDE 107 MEQ/L (98-107); CHOLESTEROL 131 MG/DL (120-200); CHOLESTEROL/ HDL RATIO 2.54 RATIO; CREATININE 0.91 MG/DL (0.60-1.30); FREE T4 1.32 NG/DL (0.76-1.46); GLOMERULAR FILTRATION RATE 86 ML/MIN (>89); GLUCOSE,RANDOM 117 MG/DL (74-106); HDL CHOLESTEROL 51.5 MG/DL (40.0-60.0); LDL CHOLESTEROL 71 MG/DL (0-99); MAGNESIUM 1.9 MG/DL (1.5-2.5); PHOSPHORUS 3.5 MG/DL (2.5-4.9); SODIUM (NA) 142 MEQ/L (136-145); TOTAL BILIRUBIN ADULT 0.4 MG/DL (0.2-1.0); TOTAL PROTEIN 5.9 GM/DL (6.4-8.2); TRIGLYCERIDES 44 MG/DL (42-150)
[2017-10-20 02:17] LABS: TROPONIN I 2.21 NG/ML (0.02-0.05)
[2017-10-20] MEDS: NITROGLYCERIN 2% OINT 1 GM PACKET TOP SCH ×4 (03:04→20:00)
[2017-10-20] MEDS: RESP: ALBUTEROL 2.5 MG/IPRATROPIUM 0.5 MG NEB (SCH) NEB ×4 (04:26→21:59)
[2017-10-20 05:46] LABS: AUTOMATED NEUTROPHIL # 8.2 TH/MM3 (1.8-7.7); BASOPHIL % 0.3 % (0.0-2.0); EOSINOPHIL % 0.1 % (0.0-4.0); HEMATOCRIT 40.9 % (39.0-51.0); HEMOGLOBIN 13.8 GM/DL (13.0-17.0); LYMPH % 13.8 % (9.0-44.0); LYMPHOCYTE # 1.4 TH/MM3 (1.0-4.8); MEAN CELL VOLUME 100.8 FL (80.0-100.0); MEAN CORPUSCULAR HGB CONC 33.7 % (32.0-36.0); MEAN PLATELET VOLUME 9.1 FL (7.0-11.0); MONO % 4.8 % (0.0-8.0); MONOCYTE # 0.5 TH/MM3 (0-0.9); PLATELET COUNT 156 TH/MM3 (150-450); RED BLOOD COUNT 4.05 MIL/MM3 (4.50-5.90); RED CELL DISTRIBUTION WIDTH 14.3 % (11.6-17.2); WHITE BLOOD COUNT 10.1 TH/MM3 (4.0-11.0)
[2017-10-20] MEDS: methylPREDNISolone SOD SUCC 40 MG/1 ML VIAL IV PUSH SCH ×3 (06:05→21:09)
[2017-10-20] MEDS: ENOXAPARIN SODIUM 80 MG/0.8 ML SYRINGE SQ SCH (08:12)
[2017-10-20] MEDS: FUROSEMIDE 40 MG/4 ML VIAL IV PUSH SCH (08:13)
[2017-10-20] MEDS: REMOVE OLD PATCH T-DERMAL SCH (08:13)
[2017-10-20] MEDS: CARVEDILOL 3.125 MG TAB PO SCH (08:13)
[2017-10-20] MEDS: ASPIRIN 81 MG CHEW TAB PO SCH (08:14)
[2017-10-20] MEDS: guaiFENesin E.R. 600 MG TAB PO SCH ×2 (08:14→21:10)
[2017-10-20] MEDS: CLOPIDOGREL 75 MG TAB PO SCH (08:14)
[2017-10-20] MEDS: LISINOPRIL 5 MG TAB PO SCH (08:15)
[2017-10-20] MEDS: SODIUM CHLORIDE 0.9% FLUSH 10 ML FLUSH IV FLUSH SCH ×2 (08:15→21:12)
[2017-10-20] MEDS: FAMOTIDINE 20 MG TAB PO SCH ×2 (08:15→21:09)
[2017-10-20] MEDS: DOCUSATE SODIUM 50 MG/SENNA 8.6 MG TAB PO SCH ×2 (08:15→21:00)
[2017-10-20] MEDS ORDERED: NICOTINE 14 MG/24 HR PATCH T-DERMAL SCH (09:00)
[2017-10-20] MEDS ORDERED: ASPIRIN EC 325 MG TABEC PO SCH (09:00)
--- NOTE | 2017-10-20 09:56 | HHI.PR ---
Subjective Remarks Patient is a 57-year-old gentleman. He presented to the emergency department here at [facility] chief complaint of shortness of breath for 1 day. Patient states his symptoms started this morning with increased work of breathing and shortness of breath. Patient complained of chest tightness, shortness of breath, and wheezing. Does have a history of bronchitis.. Denies any known history of COPD. Does has a history of tobacco use still actively smoking used to smoke about 2 packs now smokes only about one pack per day. Denies any history of pulmonary embolism, denies any history of DVT, denies any history of congestive heart failure, or any recent hospitalizations. Denies any edema. Denies any fever chills or sweats. Does have a positive cough, denies any body aches or nausea, vomiting, diarrhea, or abdominal pain. He has history of a previous cardiac stent placed at [facility] in January 2017 Was supposed to be on blood thinners but are not sure if he is actually taking anything for this 1-5 discussed with patient and RN and cardiology Blood pressure is borderline EF is 25% or so Patient may require cardiac catheterization if he consents to it Started on beta srinivasa and WILVER inhibitor Objective Vitals Vital Signs Date Time Temp Pulse Resp B/P (MAP) Pulse Ox O2 Delivery O2 Flow Rate FiO2 10/20/17 09:11 94 Nasal Cannula 1.00 10/20/17 09:00 74 10/20/17 08:00 62 10/20/17 07:00 98.0 70 18 92/62 (72) 98 10/20/17 07:00 68 10/20/17 07:00 98 Nasal Cannula 1.00 10/20/17 06:00 70 10/20/17 05:00 72 10/20/17 04:00 68 10/20/17 03:10 98.2 66 18 87/60 (69) 99 10/20/17 03:10 99 Nasal Cannula 2.00 10/20/17 03:00 71 10/20/17 02:00 81 10/20/17 01:00 61 10/20/17 00:00 75 10/19/17 23:35 Nasal Cannula 2.00 10/19/17 23:30 98 Nasal Cannula 3.00 10/19/17 23:30 98.1 82 18 84/59 (67) 98 10/19/17 23:00 67 10/19/17 22:00 74 10/19/17 21:28 91/59 (70) 10/19/17 21:00 80 10/19/17 20:56 97 Nasal Cannula 3.00 10/19/17 20:00 76 10/19/17 19:35 Nasal Cannula 3.00 10/19/17 19:30 97.9 80 18 85/60 (68) 97 10/19/17 19:30 97 Nasal Cannula 4.00 10/19/17 19:00 82 10/19/17 18:00 70 10/19/17 17:00 84 10/19/17 16:57 98 Nasal Cannula 4.00 10/19/17 16:00 70 10/19/17 15:49 90/62 (71) 10/19/17 15:00 89 10/19/17 15:00 98.0 89 21 100/57 (71) 95 10/19/17 14:39 92 24 102/55 (71) 98 Nasal Cannula 4.00 10/19/17 13:13 83 24 92/66 (75) 94 Nasal Cannula 5.00 10/19/17 10:45 94 29 139/73 (95) 99 Nasal Cannula 5.00 10/19/17 10:01 98 40 I/O 10/19/17 10/19/17 10/19/17 10/20/17 10/20/17 10/20/17 07:00 15:00 23:00 07:00 15:00 23:00 Intake Total 780 ml Output Total 350 ml 250 ml 1375 ml Balance -350 ml -250 ml -595 ml Intake Oral 780 ml Output Urine Total 350 ml 250 ml 1375 ml # Voids 1 # Bowel Movements 0 Result Diagram: 10/20/17 0433 10/20/17 0052 Other Results Laboratory Tests Test 10/19/17 09:21 10/19/17 13:16 10/19/17 17:33 10/20/17 00:52 White Blood Count 15.5 TH/MM3 Red Blood Count 4.58 MIL/MM3 Hemoglobin 15.7 GM/DL Hematocrit 47.3 % Mean Corpuscular Volume 103.3 FL Mean Corpuscular Hemoglobin 34.4 PG Mean Corpuscular Hemoglobin Concent 33.2 % Red Cell Distribution Width 15.0 % Platelet Count 225 TH/MM3 Mean Platelet Volume 8.7 FL Neutrophils (%) (Auto) 79.3 % Lymphocytes (%) (Auto) 15.5 % Monocytes (%) (Auto) 3.0 % Eosinophils (%) (Auto) 1.2 % Basophils (%) (Auto) 1.0 % Neutrophils # (Auto) 12.3 TH/MM3 Lymphocytes # (Auto) 2.4 TH/MM3 Monocytes # (Auto) 0.5 TH/MM3 Eosinophils # (Auto) 0.2 TH/MM3 Basophils # (Auto) 0.2 TH/MM3 CBC Comment DIFF FINAL Differential Comment Blood Urea Nitrogen 20 MG/DL 21 MG/DL Creatinine 1.19 MG/DL 0.91 MG/DL Random Glucose 248 MG/DL 117 MG/DL Total Protein 6.5 GM/DL 5.9 GM/DL Albumin 3.1 GM/DL 3.0 GM/DL Calcium Level 8.0 MG/DL 8.0 MG/DL Magnesium Level 2.1 MG/DL 1.9 MG/DL Alkaline Phosphatase 133 U/L 108 U/L Aspartate Amino Transf (AST/SGOT) 212 U/L 76 U/L Alanine Aminotransferase (ALT/SGPT) 289 U/L 210 U/L Total Bilirubin 0.3 MG/DL 0.4 MG/DL Sodium Level 140 MEQ/L 142 MEQ/L Potassium Level 3.8 MEQ/L 4.1 MEQ/L Chloride Level 107 MEQ/L 107 MEQ/L Carbon Dioxide Level 24.3 MEQ/L 25.7 MEQ/L Anion Gap 9 MEQ/L 9 MEQ/L Estimat Glomerular Filtration Rate 63 ML/MIN 86 ML/MIN Total Creatine Kinase 98 U/L 106 U/L 150 U/L 125 U/L Troponin I 0.85 NG/ML 1.00 NG/ML 2.34 NG/ML 2.21 NG/ML B-Type Natriuretic Peptide 806 PG/ML Creatine Kinase MB 5.5 NG/ML 10.2 NG/ML 7.6 NG/ML Phenytoin (Dilantin) Level 5.0 MCG/ML Thyroid Stimulating Hormone 3rd Gen 2.420 uIU/ML 1.990 uIU/ML Phosphorus Level 3.5 MG/DL Triglycerides Level 44 MG/DL Cholesterol Level 131 MG/DL LDL Cholesterol 71 MG/DL HDL Cholesterol 51.5 MG/DL Cholesterol/HDL Ratio 2.54 RATIO Free Thyroxine 1.32 NG/DL Test 10/20/17 04:33 White Blood Count 10.1 TH/MM3 Red Blood Count 4.05 MIL/MM3 Hemoglobin 13.8 GM/DL Hematocrit 40.9 % Mean Corpuscular Volume 100.8 FL Mean Corpuscular Hemoglobin 34.0 PG Mean Corpuscular Hemoglobin Concent 33.7 % Red Cell Distribution Width 14.3 % Platelet Count 156 TH/MM3 Mean Platelet Volume 9.1 FL Neutrophils (%) (Auto) 81.0 % Lymphocytes (%) (Auto) 13.8 % Monocytes (%) (Auto) 4.8 % Eosinophils (%) (Auto) 0.1 % Basophils (%) (Auto) 0.3 % Neutrophils # (Auto) 8.2 TH/MM3 Lymphocytes # (Auto) 1.4 TH/MM3 Monocytes # (Auto) 0.5 TH/MM3 Eosinophils # (Auto) 0.0 TH/MM3 Basophils # (Auto) 0.0 TH/MM3 CBC Comment DIFF FINAL Differential Comment Imaging Last Impressions Chest X-Ray 10/19/17 0914 Signed Impressions: Service Date/Time: October 09:23 - CONCLUSION: 1. Cardiomegaly and findings of congestive heart failure. Cruz Lovell MD Objective Remarks GENERAL: Awake alert oriented 3 talkative and cooperative SKIN: Warm and dry. HEAD: Atraumatic. Normocephalic. EYES: Pupils equal and round. No scleral icterus. No injection or drainage. Extraocular muscles intact ENT: No nasal bleeding or discharge. Mucous membranes pink and moist. Oral mucosa is moist tongue is midline NECK: Trachea midline. No JVD. Supple CARDIOVASCULAR: Regular rate and rhythm. S1 and S2 no S3 or S4 RESPIRATORY: No accessory muscle use. Coarse breath sounds bilaterally Breath sounds equal bilaterally. GASTROINTESTINAL: Abdomen soft, non-tender, nondistended. Hepatic and splenic margins not palpable. MUSCULOSKELETAL: Extremities without clubbing, cyanosis, or edema. No obvious deformities. NEUROLOGICAL: Awake and alert. No obvious cranial nerve deficits. Motor grossly within normal limits. 4 out of 5 muscle strength in the arms and legs. Normal speech. PSYCHIATRIC: INAppropriate mood and affect; insight and judgment ABnormal. Medications and IVs Current Medications Sodium Chloride (NS Flush) 2 ml UNSCH PRN IVF FLUSH AFTER USING IV ACCESS; Start 10/19/17 at 09:15; Stop 10/19/17 at 12:58; Status DC Methylprednisolone Sodium Succinate (SoluMEDROL INJ) 125 mg ONCE ONCE IV PUSH Last administered on 10/19/17at 10:50; Start 10/19/17 at 09:15; Stop 10/19/17 at 09: 17; Status DC Albuterol/ Ipratropium (Duoneb Neb) 1 ampule Q15M INH Last administered on at 09:27; Start 10/19/17 at 09:15; Stop 10/19/17 at 09:46; Status DC Sodium Chloride 500 ml @ 500 mls/hr BOLUS ONCE IV Last administered on at 10:49; Start 10/19/17 at 09:15; Stop 10/19/17 at 10:14; Status DC Aspirin (Aspirin Chew) 162 mg ONCE ONCE CHEW Last administered on 10/19/17at 11: 17; Start 10/19/17 at 10:30; Stop 10/19/17 at 10:31; Status DC Furosemide (Lasix Inj) 40 mg ONCE ONCE IV PUSH Last administered on 10/19/17at 11:18; Start 10/19/17 at 10:30; Stop 10/19/17 at 10:31; Status DC Enoxaparin Sodium (Lovenox Inj) 70 mg ONCE ONCE SQ Last administered on at 13:15; Start 10/19/17 at 11:30; Stop 10/19/17 at 11:31; Status DC Clonidine (Catapres) 0.1 mg Q4H PRN PO SBP>160, DBP>90; Start 10/19/17 at 12:30 ; Stop 10/19/17 at 13:53; Status DC Sodium Chloride (NS Flush) 2 ml BID IV FLUSH ; Start 10/19/17 at 21:00; Stop 10/19 at 21:00; Status DC Sodium Chloride (NS Flush) 2 ml UNSCH PRN IV FLUSH FLUSH AFTER USING IV ACCESS ; Start 10/19/17 at 12:30; Stop 10/19/17 at 12:58; Status DC Aspirin (Ecotrin Ec) 325 mg DAILY PO ; Start 10/20/17 at 09:00; Stop 10/20/17 at 09:00; Status DC Clopidogrel Bisulfate (Plavix) 75 mg DAILY PO Last administered on 10/20/17at 08: 14; Start 10/19/17 at 13:00 Nitroglycerin (Nitroglycerin 2% Oint) 1 inch Q6H TOP Last administered on at 08:14; Start 10/19/17 at 14:00 Nitroglycerin (Nitrostat Sl) 0.4 mg Q5M PRN SL CHEST PAIN; Start 10/19/17 at 12: 30 Acetaminophen (Tylenol) 650 mg Q6H PRN PO HEADACHE OR TEMP > 101 F; Start at 12:30 Alprazolam (Xanax) 0.25 mg Q8H PRN PO ANXIETY; Start 10/19/17 at 12:30 Carvedilol (Coreg) 3.125 mg BID PO ; Start 10/19/17 at 21:00 Atorvastatin Calcium (Lipitor) 10 mg HS PO Last administered on 10/19/17at 21:32 ; Start 10/19/17 at 21:00 Sodium Chloride (NS Flush) 2 ml UNSCH PRN IV FLUSH FLUSH AFTER USING IV ACCESS ; Start 10/19/17 at 12:30 Sodium Chloride (NS Flush) 2 ml BID IV FLUSH Last administered on 10/20/17at 08: 15; Start 10/19/17 at 21:00 Acetaminophen (Tylenol) 650 mg Q4H PRN PO TEMP > 100.4; Start 10/19/17 at 12:30 ; Stop 10/19/17 at 12:57; Status DC Ondansetron HCl (Zofran Inj) 4 mg Q6H PRN IVP NAUSEA OR VOMITING; Start at 12:30 Metoclopramide HCl (Reglan Inj) 5 mg Q6H PRN IV PUSH NAUSEA OR VOMITING; Start 10/19/17 at 12:30 Zolpidem Tartrate (Ambien) 5 mg HS PRN PO INSOMNIA; Start 10/19/17 at 12:30 Acetaminophen (Tylenol) 650 mg Q6H PRN PO PAIN SCALE 1 TO 2; Start 10/19/17 at 12:30 Oxycodone/ Acetaminophen (Percocet 5-325 Mg) 1 tab Q6H PRN PO PAIN SCALE 3 TO 5; Start 10/19/17 at 12:30 Oxycodone/ Acetaminophen (Percocet 10-325 Mg) 1 tab Q6H PRN PO PAIN SCALE 6 TO 10; Start 10/19/17 at 12:30 Morphine Sulfate (Morphine Inj) 2 mg Q3H PRN IV PUSH Pain 3-5; if unable to take PO; Start 10/19/17 at 12:30 Morphine Sulfate (Morphine Inj) 4 mg Q3H PRN IV PUSH Pain 6-10;if unable to take PO; Start 10/19/17 at 12:30 Naloxone HCl (Narcan Inj) 0.4 mg UNSCH PRN IV PUSH SEE LABEL COMMENTS; Start at 12:30 Senna/Docusate Sodium (Lillian-Colace) 1 tab BID PO Last administered on 10/20/17at 08:15; Start 10/19/17 at 21:00 Magnesium Hydroxide (Milk Of Magnesia Liq) 30 ml Q12H PRN PO Mild constipation ; Start 10/19/17 at 12:30 Sennosides (Senokot) 17.2 mg Q12H PRN PO Moderate constipation; Start 10/19/17 at 12:30 Bisacodyl (Dulcolax Supp) 10 mg DAILY PRN RECTAL SEVERE CONSITIPATION; Start at 12:30 Lactulose (Lactulose Liq) 30 ml DAILY PRN PO SEVERE CONSITIPATION; Start at 12:30 Flumazenil (Romazicon Inj) 0.2 mg Q1M PRN IV PUSH SEE LABEL COMMENTS; Start 10/19/17 at 12:30 Lorazepam (Ativan) 1 mg Q4H PRN PO CIWA 8 - 10; Start 10/19/17 at 12:30 Lorazepam (Ativan Inj) 1 mg Q4H PRN IV PUSH CIWA 8 - 10; Start 10/19/17 at 12:30 Lorazepam (Ativan) 2 mg Q2H PRN PO CIWA 11-14; Start 10/19/17 at 12:30 Lorazepam (Ativan Inj) 2 mg Q2H PRN IV PUSH CIWA 11-14; Start 10/19/17 at 12:30 Lorazepam (Ativan Inj) 2 mg Q1H PRN IV PUSH CIWA 15-20; Start 10/19/17 at 12:30 Lorazepam (Ativan Inj) 2 mg Q15M PRN IV PUSH CIWA > 20; Start 10/19/17 at 12:30 Haloperidol Lactate (Haldol Inj) 2 mg Q15M PRN IM SEE LABEL COMMENTS; Start 10/19/17 at 12:30 Furosemide (Lasix Inj) 40 mg BID@,18 IV PUSH Last administered on 10/20/17at 08 :13; Start 10/19/17 at 18:00 Guaifenesin (Mucinex Er) 600 mg BID PO Last administered on 10/20/17at 08:14; Start 10/19/17 at 13:00 Methylprednisolone Sodium Succinate (SoluMEDROL INJ) 40 mg Q6HR IV PUSH Last administered on 10/20/17 06:05; Start 10/19/17 at 18:00 Nicotine (Habitrol 14 Mg Patch.24 Hr) 1 patch ONCE ONCE T-DERMAL Last administered on 10/19/17at 13:00; Start 10/19/17 at 13:00; Stop 10/19/17 at 13:51; Status DC Nicotine (Habitrol 14 Mg Patch.24 Hr) 1 patch DAILY T-DERMAL Last administered on 10/20/17at 08:12; Start 10/20/17 at 09:00 Miscellaneous Information 1 DAILY T-DERMAL Last administered on 10/20/17 08:13 ; Start 10/20/17 at 09:00 Albuterol/ Ipratropium (Duoneb Neb) 1 ampule Q6HR NEB NEB Last administered on 10/20/17at 09:09; Start 10/19/17 at 16:00 Albuterol/ Ipratropium (Duoneb Neb) 1 ampule Q2HR NEB PRN NEB SHORTNESS OF BREATH; Start 10/19/17 at 12:30 Famotidine (Pepcid) 20 mg BID PO Last administered on 10/20/17at 08:15; Start 10/19/17 at 13:00 Enoxaparin Sodium (Lovenox Inj) 70 mg Q12H SQ Last administered on 10/20/17at 08: 12; Start 10/19/17 at 21:00 Aspirin (Aspirin Chew) 81 mg DAILY PO Last administered on 10/20/17at 08:14; Start 10/20/17 at 09:00 Clopidogrel Bisulfate (Plavix) 300 mg ONCE ONCE PO Last administered on at 15:45; Start 10/19/17 at 14:00; Stop 10/19/17 at 14:15; Status DC Lisinopril (Prinivil) 5 mg DAILY PO Last administered on 10/20/17at 08:15; Start 10/19/17 at 14:00 Levothyroxine Sodium (Synthroid) 88 mcg DAILY@0600 PO ; Start 10/20/17 at 09:15 Phenytoin (Dilantin) 100 mg QID PO ; Start 10/20/17 at 13:00 A/P Problem List: (1) Tobacco abuse ICD Code: Z72.0 - Tobacco use (2) Noncompliance ICD Code: Z91.19 - Patient's noncompliance with other medical treatment and regimen (3) COPD (chronic obstructive pulmonary disease) ICD Code: J44.9 - Chronic obstructive pulmonary disease, unspecified (4) Seizure ICD Code: R56.9 - Unspecified convulsions (5) Hypothyroidism ICD Code: E03.9 - Hypothyroidism, unspecified (6) Coronary artery disease ICD Code: I25.10 - Atherosclerotic heart disease of [place] coronary artery without angina pectoris (7) NSTEMI (non-ST elevated myocardial infarction) ICD Code: I21.4 - Non-ST elevation (NSTEMI) myocardial infarction Status: Acute (8) Congestive heart failure ICD Code: I50.9 - Heart failure, unspecified Status: Acute Assessment and Plan Congestive heart failure Will diurese with Lasix will replace with potassium echocardiogram EF of 25% per echo We'll trend troponins went up to over 2 now starting to trend down Consult cardiology a.m. labs COPD continue on Mucinex Continue on steroids Continue on DuoNeb's Hold off on antibiotics at this time Hypothyroidism check TSH and free T4 obtain home medication dose of Synthroid Seizure disorder check a Dilantin level obtained his home dose of Dilantin and restart if able Non-ST elevation MD consult cardiology Trend troponins Echo Aspirin and Plavix and Lovenox on beta blockers and wilver inhibitors if can tolerate Continue statin Has history of right circumflex stenting may be occluded Tobacco abuse recommend smoking cessation NicoDerm patch 14 mg daily Dyslipidemia can continue on Lipitor Noncompliance recommend patient take his medications and follow-up after discharge - Consult case management DVT prophylaxis with Lovenox GI prophylaxis with Pepcid Patient may end up with cardiac catheterization prior to discharge Discussed with cardiology Discharge Planning Pending cardiac clearance Problem Qualifiers (1) Congestive heart failure: Qualified Codes: I50.9 - Heart failure, unspecified Vinod Ladd DO Oct 20, 2017 09:56
--- NOTE | 2017-10-20 10:08 | PD.CARD.PN ---
Subjective Subjective Remarks no chest pain. SOB better. Objective Medications Current Medications Medications (Trade) Dose Ordered Sig/Jumana Route Start Time Stop Time Status Last Admin (Plavix) 75 mg DAILY PO 10/19/17 13:00 10/20/17 08:14 (Nitroglycerin 2% Oint) 1 inch Q6H TOP 10/19/17 14:00 10/20/17 08:14 (Nitrostat Sl) 0.4 mg Q5M PRN SL 10/19/17 12:30 (Tylenol) 650 mg Q6H PRN PO 10/19/17 12:30 (Xanax) 0.25 mg Q8H PRN PO 10/19/17 12:30 (Coreg) 3.125 mg BID PO 10/19/17 21:00 (Lipitor) 10 mg HS PO 10/19/17 21:00 10/19/17 21:32 (NS Flush) 2 ml UNSCH PRN IV FLUSH 10/19/17 12:30 (NS Flush) 2 ml BID IV FLUSH 10/19/17 21:00 10/20/17 08:15 (Zofran Inj) 4 mg Q6H PRN IVP 10/19/17 12:30 (Reglan Inj) 5 mg Q6H PRN IV PUSH 10/19/17 12:30 (Ambien) 5 mg HS PRN PO 10/19/17 12:30 (Tylenol) 650 mg Q6H PRN PO 10/19/17 12:30 (Percocet 5-325 Mg) 1 tab Q6H PRN PO 10/19/17 12:30 (Percocet 10-325 Mg) 1 tab Q6H PRN PO 10/19/17 12:30 (Morphine Inj) 2 mg Q3H PRN IV PUSH 10/19/17 12:30 (Morphine Inj) 4 mg Q3H PRN IV PUSH 10/19/17 12:30 (Narcan Inj) 0.4 mg UNSCH PRN IV PUSH 10/19/17 12:30 (Lillian-Colace) 1 tab BID PO 10/19/17 21:00 10/20/17 08:15 (Milk Of Magnesia Liq) 30 ml Q12H PRN PO 10/19/17 12:30 (Senokot) 17.2 mg Q12H PRN PO 10/19/17 12:30 (Dulcolax Supp) 10 mg DAILY PRN RECTAL 10/19/17 12:30 (Lactulose Liq) 30 ml DAILY PRN PO 10/19/17 12:30 (Romazicon Inj) 0.2 mg Q1M PRN IV PUSH 10/19/17 12:30 (Ativan) 1 mg Q4H PRN PO 10/19/17 12:30 (Ativan Inj) 1 mg Q4H PRN IV PUSH 10/19/17 12:30 (Ativan) 2 mg Q2H PRN PO 10/19/17 12:30 (Ativan Inj) 2 mg Q2H PRN IV PUSH 10/19/17 12:30 (Ativan Inj) 2 mg Q1H PRN IV PUSH 10/19/17 12:30 (Ativan Inj) 2 mg Q15M PRN IV PUSH 10/19/17 12:30 (Haldol Inj) 2 mg Q15M PRN IM 10/19/17 12:30 (Lasix Inj) 40 mg BID@ IV PUSH 10/19/17 18:00 10/20/17 08:13 (Mucinex Er) 600 mg BID PO 10/19/17 13:00 10/20/17 08:14 (SoluMEDROL INJ) 40 mg Q6HR IV PUSH 10/19/17 18:00 10/20/17 06:05 (Habitrol 14 Mg Patch.24 Hr) 1 patch DAILY T-DERMAL 10/20/17 09:00 10/20/17 08:12 Miscellaneous Information 1 DAILY T-DERMAL 10/20/17 09:00 10/20/17 08:13 (Duoneb Neb) 1 ampule Q6HR NEB NEB 10/19/17 16:00 10/20/17 09:09 (Duoneb Neb) 1 ampule Q2HR NEB PRN NEB 10/19/17 12:30 (Pepcid) 20 mg BID PO 10/19/17 13:00 10/20/17 08:15 (Lovenox Inj) 70 mg Q12H SQ 10/19/17 21:00 10/20/17 08:12 (Aspirin Chew) 81 mg DAILY PO 10/20/17 09:00 10/20/17 08:14 (Prinivil) 5 mg DAILY PO 10/19/17 14:00 10/20/17 08:15 (Synthroid) 88 mcg DAILY@0600 PO 10/20/17 09:15 (Dilantin) 100 mg QID PO 10/20/17 13:00 Vital Signs / I&O Vital Signs Date Time Temp Pulse Resp B/P (MAP) Pulse Ox O2 Delivery O2 Flow Rate FiO2 10/20/17 09:11 94 Nasal Cannula 1.00 10/20/17 09:00 74 10/20/17 08:00 62 10/20/17 07:00 98.0 70 18 92/62 (72) 98 10/20/17 07:00 68 10/20/17 07:00 98 Nasal Cannula 1.00 10/20/17 06:00 70 10/20/17 05:00 72 10/20/17 04:00 68 10/20/17 03:10 98.2 66 18 87/60 (69) 99 10/20/17 03:10 99 Nasal Cannula 2.00 10/20/17 03:00 71 10/20/17 02:00 81 10/20/17 01:00 61 10/20/17 00:00 75 10/19/17 23:35 Nasal Cannula 2.00 10/19/17 23:30 98 Nasal Cannula 3.00 10/19/17 23:30 98.1 82 18 84/59 (67) 98 10/19/17 23:00 67 10/19/17 22:00 74 10/19/17 21:28 91/59 (70) 10/19/17 21:00 80 10/19/17 20:56 97 Nasal Cannula 3.00 10/19/17 20:00 76 10/19/17 19:35 Nasal Cannula 3.00 10/19/17 19:30 97.9 80 18 85/60 (68) 97 10/19/17 19:30 97 Nasal Cannula 4.00 10/19/17 19:00 82 10/19/17 18:00 70 10/19/17 17:00 84 10/19/17 16:57 98 Nasal Cannula 4.00 10/19/17 16:00 70 10/19/17 15:49 90/62 (71) 10/19/17 15:00 89 10/19/17 15:00 98.0 89 21 100/57 (71) 95 10/19/17 14:39 92 24 102/55 (71) 98 Nasal Cannula 4.00 10/19/17 13:13 83 24 92/66 (75) 94 Nasal Cannula 5.00 10/19/17 10:45 94 29 139/73 (95) 99 Nasal Cannula 5.00 I/O 10/19/17 10/19/17 10/19/17 10/20/17 10/20/17 10/20/17 07:00 15:00 23:00 07:00 15:00 23:00 Intake Total 780 ml Output Total 350 ml 250 ml 1375 ml Balance -350 ml -250 ml -595 ml Intake Oral 780 ml Output Urine Total 350 ml 250 ml 1375 ml # Voids 1 # Bowel Movements 0 Physical Exam Alert Chest exp wheezing, diminished at bases CV [id number] no edema Laboratory Laboratory Tests Test 10/19/17 13:16 10/19/17 17:33 10/20/17 00:52 10/20/17 04:33 Total Creatine Kinase 106 U/L 150 U/L 125 U/L Creatine Kinase MB 5.5 NG/ML 10.2 NG/ML 7.6 NG/ML Troponin I 1.00 NG/ML 2.34 NG/ML 2.21 NG/ML Phenytoin (Dilantin) Level 5.0 MCG/ML Thyroid Stimulating Hormone 3rd Gen 2.420 uIU/ML 1.990 uIU/ML Blood Urea Nitrogen 21 MG/DL Creatinine 0.91 MG/DL Random Glucose 117 MG/DL Total Protein 5.9 GM/DL Albumin 3.0 GM/DL Calcium Level 8.0 MG/DL Phosphorus Level 3.5 MG/DL Magnesium Level 1.9 MG/DL Alkaline Phosphatase 108 U/L Aspartate Amino Transf (AST/SGOT) 76 U/L Alanine Aminotransferase (ALT/SGPT) 210 U/L Total Bilirubin 0.4 MG/DL Sodium Level 142 MEQ/L Potassium Level 4.1 MEQ/L Chloride Level 107 MEQ/L Carbon Dioxide Level 25.7 MEQ/L Anion Gap 9 MEQ/L Estimat Glomerular Filtration Rate 86 ML/MIN Triglycerides Level 44 MG/DL Cholesterol Level 131 MG/DL LDL Cholesterol 71 MG/DL HDL Cholesterol 51.5 MG/DL Cholesterol/HDL Ratio 2.54 RATIO Free Thyroxine 1.32 NG/DL White Blood Count 10.1 TH/MM3 Red Blood Count 4.05 MIL/MM3 Hemoglobin 13.8 GM/DL Hematocrit 40.9 % Mean Corpuscular Volume 100.8 FL Mean Corpuscular Hemoglobin 34.0 PG Mean Corpuscular Hemoglobin Concent 33.7 % Red Cell Distribution Width 14.3 % Platelet Count 156 TH/MM3 Mean Platelet Volume 9.1 FL Neutrophils (%) (Auto) 81.0 % Lymphocytes (%) (Auto) 13.8 % Monocytes (%) (Auto) 4.8 % Eosinophils (%) (Auto) 0.1 % Basophils (%) (Auto) 0.3 % Neutrophils # (Auto) 8.2 TH/MM3 Lymphocytes # (Auto) 1.4 TH/MM3 Monocytes # (Auto) 0.5 TH/MM3 Eosinophils # (Auto) 0.0 TH/MM3 Basophils # (Auto) 0.0 TH/MM3 CBC Comment DIFF FINAL Differential Comment Assessment and Plan Problem List: (1) NSTEMI (non-ST elevated myocardial infarction) ICD Codes: I21.4 - Non-ST elevation (NSTEMI) myocardial infarction Status: Acute (2) COPD (chronic obstructive pulmonary disease) ICD Codes: J44.9 - Chronic obstructive pulmonary disease, unspecified (3) Congestive heart failure ICD Codes: I50.9 - Heart failure, unspecified Status: Acute (4) Hypothyroidism ICD Codes: E03.9 - Hypothyroidism, unspecified (5) Noncompliance ICD Codes: Z91.19 - Patient's noncompliance with other medical treatment and regimen Assessment and Plan Explained his condition in detail. Informed consent for cardiac cath later today Problem Qualifiers (1) Congestive heart failure: Qualified Codes: I50.9 - Heart failure, unspecified Flakito Montenegro MD Oct 20, 2017 10:08
[2017-10-20] MEDS ORDERED: diphenhydrAMINE HCL 50 MG CAP PO SCH (10:15)
[2017-10-20] MEDS ORDERED: DIAZEPAM 5 MG TAB PO SCH (10:15)
[2017-10-20] MEDS: LEVOTHYROXINE SODIUM 88 MCG TAB PO SCH (10:31)
[2017-10-20] MEDS: PHENYTOIN SODIUM 100 MG CAP PO SCH ×3 (12:09→21:10)
[2017-10-20 12:45] LABS: INTERNATIONAL NORMALIZED RATIO 1.1 RATIO; PROTHROMBIN TIME - PATIENT 11.4 SEC (9.8-11.6)
[2017-10-20] MEDS: SODIUM CHLOR 0.9% 1000 ML INJ 1,000 ML IV SCH (14:32)
[2017-10-20] MEDS ORDERED: IOHEXOL 350 MG/ML 50 ML BTL (for Cath Lab) OTHER ONE (15:14)
[2017-10-20] MEDS ORDERED: HEPARIN-NS/PF INJ 1,000 ML ONE (16:14)
[2017-10-20] MEDS ORDERED: MIDAZOLAM HCL 2 MG/2 ML VIAL ONE ×2 (16:32→17:30)
[2017-10-20 17:29] LABS: HEMOGLOBIN A1C 5.4 % (4.3-6.0)
[2017-10-20] MEDS ORDERED: NITROGLYCERIN INJ 5 ML ONE (17:32)
[2017-10-20] MEDS ORDERED: HEPARIN SODIUM - IV 10,000 UNITS/10 ML VIAL ONE (17:32)
[2017-10-20] MEDS ORDERED: VERAPAMIL HCL 5 MG/2 ML VIAL ONE (17:32)
[2017-10-20] MEDS ORDERED: SODIUM CHLOR 0.9% 1000 ML INJ 1,000 ML IV SCH (18:29)
--- NOTE | 2017-10-20 18:29 | EKG ---
Date Performed: 10/19/2017 Time Performed: 10:41:42 PTAGE: 57 years EKG: Sinus rhythm MARKED LEFT AXIS DEVIATION LOW QRS VOLTAGE IN EXTREMITY LEADS POSSIBLE INFERIOR MYOCARDIAL INFARCTIO N ABNORMAL ECG PREVIOUS TRACING : 10/19/2017 10.40 DOCTOR: Andre Mcdonald Interpretating Date/Time 10/24/2017 08:17:51
[2017-10-20] MEDS ORDERED: SODIUM CHLORIDE 0.9% FLUSH 10 ML FLUSH IV FLUSH PRN (18:30)
[2017-10-20] MEDS ORDERED: ONDANSETRON HCL 4 MG/2 ML VIAL IVP PRN (18:30)
[2017-10-20] MEDS ORDERED: MISC INFORMATION XX ONE (18:30)
--- NOTE | 2017-10-20 18:45 | CATHPROC ---
[facility] HIS Report Study Information Study Number Admission Scheduled Start Study Start [id number] Oct 19 2017 11:42AM 10/20/2017 Oct 20 2017 4:13PM [place] Service Cardiac Catheterization Admit Source Facility Department Emergency department [facility] - [facility] Physician and Clinical Staff Initial Flakito Brooks Shopping Centre Manager Shankar William RN Shopping Centre Manager Cindy Lua BSN Recorder Kaity Hurtado,MUSTAPHA TECH2 Scrub Hostdiaz, Adryan,RT(R) Procedures Performed Procedure Location (Site) Vessel Name Coronary Angiograms LCA Left Coronary Coronary Angiograms RCA Right Coronary PTCA CIRC Prox CIRC Wire insertion Fem Art (left) Femoral Art Wire insertion Fem Art (right) Femoral Art Wire insertion Antecubital (right) Antecubital Vein Wire insertion Radial (right) Radial Art. Equipment Time Coil Shaper Description Size Mfg Part Number Used/Scraped [id number] 17:48 [employer] WIRE, ASAHI FIELDER XT 300CM 300CM Used *[id number] WIRE, ASAHI MIRACLEBROS 12 [id number] 17:59 [employer] 300CM Used 300CM *[id number] WIRE, BALANCE MIDDLEWEIGHT [id number] 17:42 [employer] 190CM Used 190CM *[id number] TRANSDUCER, TRUWAVE [id number] 16:30 WATT PITTMAN * Used W/STOCKCOCK *[id number] BALLOON, 2.0 X 15 MAVERICK [id number] 17:48 B[employer] 2.0 X 15 Used (OTW) *[id number] *[id number] PIGTAIL ANG. 145 INFINITI [id number] CATHETER *[id number] *[id number] WIRE, HYDROSTEER 150CM [id number] 17:10 DAIG/[employer] 150CM Used ANGLED GLIDE *[id number] 16:30 MEDLINE IND[employer]ES PACK, CCL CUSTOM * Used *[id number] 16:30 MEDLINE PACER PEN, SKIN DUAL W/ RULER * Used *[id number] 18:13 [employer] 30 JENNIFFER INDEFLATOR Used *[id number] BAND, RADIAL COMPRESSION TR [id number] 18:20 [employer] 24CM Used SHORT 24 *[id number] BAND, RADIAL COMPRESSION TR [id number] 18:20 [employer] 24CM Used SHORT 24 *[id number]- 16:30 [employer] SHEATH, FR6.5 PRELUDE 11CM FR 6.5 038ACT Used *[id number]-6F-11- 17:17 [employer] SHEATH, FR6.5 PRELUDE 11CM FR 6.5 038ACT Used *[id number] [id number] 16:30 [employer] WIRE, 3MMJ .035 180CM 180CM Used *0995830 [id number] 17:11 [employer] WIRE, EXCHANGE 260CM 3MMJ 260CM Used *[id number] 16:30 NAMIC MANIFOLD, 4 PORT * Used *[id number] 16:30 NYCOMED OMNIPAQUE, 350 MG, 100ML 100ML [id number] Used 16:43 NYCOMED OMNIPAQUE, 350 MG, 50ML 50ML [id number] Used [id number] 16:30 [facility] BLANKET,WARM AIR CCL * Used *[id number] CATHETER, FR5 OPTITORQUE [id number] 17:38 [employer] FR 5 Used RADIAL TIG 4.0 *[id number] SHEATH, FR6 TRANSRADIAL [id number] 17:25 [employer] FR 6 Used SLENDER 10CM *[id number] Equipment Model, Serial, Lot Number and Expiration Data Description Model Number Serial Number Lot Number Expiration Date BALLOON, 2.0 X 15 MAVERICK [id number] 05-30-2020 (OTW) SHEATH, FR6.5 PRELUDE 11CM [id number] 04-14-2020 WIRE, HYDROSTEER 150CM [id number] 06-15-2020 ANGLED GLIDE History: Allergies Allergy Reaction No Known Allergies History: Risk Factors Family History of Hypertension Dyslipidemia Previous OH Previous Heart Failure Premature CAD No No Yes Yes Yes Prior Valve Prior PCI Prior PCIDate Prior CABG Surgery No Yes 02/06/2017 No Cerebrovascular Peripheral Artery Chronic Lung On Dialysis Diabetes Disease Disease Disease No No No Yes No History: Risk Factors Selection Items Current Smoker History: Symptoms/Diagnosis Selection Items Chest pain SOB History: Stress Tests Stress or Imaging Studies Performed No History: Arrhythmias Selection Items Atrial fibrillation History: Other Current Smoker Method Packs a Day Yes Cigarettes 2 Labs Hgb (g/dl) Hct (%) WBC (l/cumm) Platelets (thousands) 11.60-17.00 35.00-51.00 4.00-11.00 150.00-450.00 13.8 40.9 10.1 156 Glucose (mg/dl) BUN (mg/dl) Creatinine (mg/dl) BUN:Creatinine (1:x) 74.00-106.00 7.00-18.00 0.50-1.30 10.00-20.00 117 21 0.9 23.3 Na (meq/l) K (meq/l) 136.00-145.00 3.50-5.10 142 4.1 Troponin I (ng/ml) CPK (u/l) CPK-MB (ng/ML) 0.02-0.05 26.00-308.00 0.50-3.60 2.21 125 7.6 Medication Medication Total Dose (Bolus/Oral) Medication Total Dosage/Unit 1% XYLOCAINE 50 mL FENTANYL 50 mcg HEPARIN 4000 units OXYGEN 2 l/min RADIAL COCKTAIL 5 mL (Bolus) VERSED 3 mg Medications (Bolus/Oral) Medication Time Given Dosage/Unit Administered By Reason VERSED 10/20/2017 4:55:25 PM 1 mg Cindy Lua 1 mg VERSED given in lab by Cindy Lua BSN in Right Antecubital via Peripheral IV. Ordered by Flakito Montenegro. 1% XYLOCAINE 10/20/2017 4:58:27 PM 20 mL Flakito Montenegro 20 mL 1% XYLOCAINE given in lab by Flakito Montenegro in Right Groin via Subcutaneous. Ordered by Flakito Montenegro. VERSED 10/20/2017 5:15:36 PM 1 mg Cindy Lua 1 mg VERSED given in lab by Cindy Lua BSN in Right Antecubital via Peripheral IV. Ordered by Flakito Montenegro. 1% XYLOCAINE 10/20/2017 5:16:00 PM 20 mL Flakito Montenegro 20 mL 1% XYLOCAINE given in lab by Flakito Montenegro in Left Groin via Subcutaneous. Ordered by Marleny Montenegro. OXYGEN 10/20/2017 5:20:36 PM 2 l/min Cindy Lua 2 l/min OXYGEN given in lab by Cindy Lua BSN via Nasal. Ordered by Flakito Montenegro. VERSED 10/20/2017 5:32:06 PM 1 mg Cindy Lua 1 mg VERSED given in lab by Cindy Lua BSN in Right Antecubital via Peripheral IV. Ordered by Flakito Montenegro. 1% XYLOCAINE 10/20/2017 5:32:33 PM 10 mL Flakito Montenegro 10 mL 1% XYLOCAINE given in lab by Flakito Montenegro in Right Radial via Subcutaneous. Ordered by Flakito Montenegro. Ntg 200mcg Verapamil 2.5mg Heparin RADIAL COCKTAIL 10/20/2017 5:36:42 PM 5 mL (Bolus) Flakito Montenegro 2500U 5 mL (Bolus) RADIAL COCKTAIL given in lab by Flakito Montenegro in Right Radial via Radial. Using [Solutio n Name]. Ordered by Flakito Montenegro. Reason: Ntg 200mcg Verapamil 2.5mg Heparin 2500U. FENTANYL 10/20/2017 5:36:58 PM 50 mcg Flakito Montenegro 50 mcg FENTANYL given in lab by Flakito Montenegro in Right Radial via Peripheral IV. Ordered by Marleny Montenegro. HEPARIN 10/20/2017 5:41:22 PM 4000 units Flakito Montenegro 4000 units HEPARIN given in lab by Flakito Montenegro in Right Antecubital via Peripheral IV. Ordered by Flakito Cisneros. Medication (Drip) Medication Time Given Dosage/Unit Concentration/Unit Diluent (ml) Solutio n IV Solutions 10/20/2017 4:28:23 PM 0 mL (IV) 1000 NaCl .9 Patient arrived on IV Solutions in Right Antecubital via Peripheral IV. Pump/Drip Flow = 20 ml/hr usi ng NaCl .9. Initial Case Assessment Cardiovascular HR Rhythm NIBP Chest Pain 81 sr 96/60 0 Circulatory - Right Pulses Dorsalis Pedis Femoral 0 d Scale (0,1,2,3,4,d) Circulatory - Left Pulses Dorsalis Pedis Femoral 0 d Scale (0,1,2,3,4,d) Neurological State Oriented to time-place- Alert Moves all extremities person Respiration - General Respiration Rate SpO2 (%) (B/min) 19 95 Final Case Assessment Cardiovascular HR Rhythm NIBP Chest Pain 67 sr 102/68 0 Circulatory - Right Pulses Dorsalis Pedis Femoral Radial 0 d 2 Scale (0,1,2,3,4,d) Circulatory - Left Pulses Dorsalis Pedis Femoral Radial 0 d Scale (0,1,2,3,4,d) Neurological State Oriented to time-place- Alert Moves all extremities person Respiration - General Respiration Rate SpO2 (%) (B/min) 17 97 Chronological Log Time Study Chronological Log 16:25:48 Patient arrived via Bed. 16:25:50 Patient Name, D.O.B, / Armband Verified By R.N. 16:25:52 Consent signed by the physician and the patient and verified by the [facility] staff. 16:25:53 Pre-op and post- op instructions given; patient acknowledges understanding of instructions. 16:25:54 Verbal Stimulation=2 Physical Stimulation=2 Airway=2 Respiration=2 TOTAL=8. (0=absent, 1=li mited, 2=present) 16:25:57 Presedation assessment performed by Bead Trimmer RN. 16:26:00 Patient has been NPO for More than 6Hrs. 16:26:01 Skin Breakdown-none 16:26:02 Luis Prominences Protected 16:28:06 A # 20 IV was noted in the Antecubital (right). Grade = 0 16:28:23 Patient arrived on IV Solutions in Right Antecubital via Peripheral IV. Pump/Drip Flow = 20 ml/hr using NaCl .9. Vitals capture started with the following parameters, Patient=Adult, Interval=5 min, Initial Pr llbtbn=673 mmHg, 16:28:40 Deflation Rate=5 mmHg, Cuff placed on Left Arm 16:29:16 History and physical on the chart or being dictated. Assessment: Initial Case, HR=81 BPM, Rhythm=sr, NIBP=96/60 mmhg, Chest Pain=0 Right Pulses: Randal Ped=0, Femoral=d 16:29:18 Left Pulses: Randal Ped=0, Femoral=d Neurological: State=Alert, Ox3, ST Respiration: Resp=19 B/min, SpO2=95 % 16:29:22 Reference ECG taken 16:29:23 HR=81 bpm, NIBP=96/60 mmhg, SpO2=96.0 %, Resp=19 B/min, Pain=0, Shonda=10, Rose=2 16:34:12 HR=65 bpm, NIBP=89/55 mmhg, SpO2=95.0 %, Resp=15 B/min, Pain=0, Shonda=10, Rose=2 16:34:58 Bilateral groins prepped with 2% chlorhexidine, and draped after a 3 minute waiting time. 16:35:07 NIBP STAT measurement started. 16:35:36 HR=67 bpm, NIBP=95/60 mmhg, SpO2=94.0 %, Resp=20 B/min 16:39:09 HR=76 bpm, QJBD=619/65 mmhg, SpO2=95.0 %, Resp=19 B/min 16:40:59 Pressure channel 1 zeroed. 16:41:37 paged 16:44:12 HR=75 bpm, NIBP=90/62 mmhg, SpO2=95.0 %, Resp=15 B/min 16:49:09 HR=70 bpm, NIBP=99/63 mmhg, SpO2=95.0 %, Resp=16 B/min 16:52:34 MD arrived. 16:54:14 HR=65 bpm, NIBP=94/60 mmhg, SpO2=97.0 %, Resp=13 B/min 1 mg VERSED given in lab by Cindy Lua BSN in Right Antecubital via Peripheral IV. Or dered by Lan, 16:55:25 Flakito. Time Out. Correct patient, correct procedure, correct physician, power injector loaded, or not loaded with contrast with 16:56:10 surgical team present. Time Out Concurred by MD and individual staff in procedure. 16:56:26 Case Start 16:58:27 20 mL 1% XYLOCAINE given in lab by Flakito Montenegro in Right Groin via Subcutaneous. Ordered b y Flakito Montenegro. 16:59:11 HR=68 bpm, NIBP=94/61 mmhg, SpO2=96.0 %, Resp=23 B/min 17:04:12 HR=67 bpm, NIBP=94/64 mmhg, SpO2=96.0 %, Resp=22 B/min 17:09:11 HR=64 bpm, NIBP=89/55 mmhg, SpO2=97.0 %, Resp=22 B/min 17:09:46 Access site was Right Femoral Artery. 17:10:00 A WIRE, HYDROSTEER 150CM ANGLED GLIDE 150CM was inserted via Fem Art (right). 17:11:13 A SHEATH, FR6.5 PRELUDE 11CM FR 6.5 was advanced into the Fem Art (right) using the Percuta neous technique. A 3DRC INFINITI CATHETER FR 6 was advanced over a wire. OMNIPAQUE, 350 MG, 100ML 100ML was used for 17:12:02 injections. 17:13:08 Unable to advance catheter, catheter and Wire removed 17:13:41 Sheath removed; pressure applied to access site. 17:14:10 HR=71 bpm, NIBP=90/59 mmhg, SpO2=96.0 %, Resp=16 B/min 1 mg VERSED given in lab by Cindy Lua , SHON in Right Antecubital via Peripheral IV. Or dered by Lan, 17:15:36 Flakito. 17:16:00 20 mL 1% XYLOCAINE given in lab by Flakito Montenegro in Left Groin via Subcutaneous. Ordered by Flakito Montenegro. 17:19:11 HR=60 bpm, NIBP=93/60 mmhg, SpO2=96.0 %, Resp=19 B/min 17:20:36 2 l/min OXYGEN given in lab by Cindy Lua , SHON via Nasal. Ordered by Flakito Montenegro . 17:23:46 Access site was Left Femoral Artery. 17:24:08 A WIRE, HYDROSTEER 150CM ANGLED GLIDE 150CM was inserted via Fem Art (left). 17:24:15 HR=70 bpm, NIBP=88/60 mmhg, SpO2=96.0 %, Resp=20 B/min 17:24:31 Unable to advance glidewire, Wire removed. Access aborted, Manual pressure held. 17:29:14 HR=68 bpm, NIBP=94/64 mmhg, Resp=21 B/min 1 mg VERSED given in lab by Cindy Lua , STAR in Right Antecubital via Peripheral IV. Or dered by Lan, 17:32:06 Flakito. 17:32:33 10 mL 1% XYLOCAINE given in lab by Flakito Montenegro in Right Radial via Subcutaneous. Ordered by Flakito Montenegro. 17:34:55 Access site was Radial Artery. right 17:35:06 HR=65 bpm, NIBP=95/60 mmhg, Resp=25 B/min A SHEATH, FR6 TRANSRADIAL SLENDER 10CM FR 6 was advanced into the Fem Art (right) using the Per cutaneous 17:35:14 technique. 5 mL (Bolus) RADIAL COCKTAIL given in lab by Flakito Montenegro in Right Radial via Radial. Using [S olution Name]. 17:36:42 Ordered by Flakito Montenegro. Reason: Ntg 200mcg Verapamil 2.5mg Heparin 2500U. 17:36:58 50 mcg FENTANYL given in lab by Flakito Montenegro in Right Radial via Peripheral IV. Ordered by Flakito Montenegro. A CATHETER, FR5 OPTITORQUE RADIAL TIG 4.0 FR 5 was advanced over a wire. OMNIPAQUE, 350 MG, 100 ML 100ML 17:37:15 was used for injections. Recorded Pressure: Ao, HR=63, Condition=Condition 1 17:38:04 (Aorta) Ao 75/50/61 17:38:21 NIBP STAT measurement started. 17:38:32 The LCA was injected and visualized at various angles. OMNIPAQUE, 350 MG, 100ML 100ML used . 17:38:51 HR=64 bpm, NIBP=86/51 mmhg, SpO2=95.0 %, Resp=19 B/min 17:39:00 The RCA was injected and visualized at various angles. OMNIPAQUE, 350 MG, 100ML 100ML used . After removing the current catheter a XB 3.5 GUIDE CATHETER FR 6 was advanced over a WIRE, EXCH KATHY 260CM 17:40:11 3MMJ 260CM. 17:41:22 4000 units HEPARIN given in lab by Flakito Montenegro in Right Antecubital via Peripheral IV. Or dered by Flakito Montenegro. 17:43:36 A WIRE, BALANCE MIDDLEWEIGHT 190CM 190CM was inserted via Radial (right). 17:44:15 HR=62 bpm, NIBP=96/60 mmhg, SpO2=93.0 %, Resp=12 B/min 17:45:34 Wire removed 17:48:25 A WIRE, ASAJimmy Fairly FIELDER XT 300CM 300CM was inserted via Antecubital (right). 17:49:18 HR=57 bpm, NIBP=94/59 mmhg, SpO2=96.0 %, Resp=16 B/min A BALLOON, 2.0 X 15 MAVERICK (OTW) 2.0 X 15 was inserted over WIRE, ASAHI FIELDER XT 300CM 300C M via the 17:50:09 LCA. 17:54:19 HR=59 bpm, NIBP=96/60 mmhg, SpO2=96.0 %, Resp=15 B/min 17:59:20 HR=63 bpm, NIBP=94/60 mmhg, SpO2=97.0 %, Resp=16 B/min 18:01:46 The previous wire was exchanged for a WIRE, ASAHI MIRACLEBROS 12 300CM 300CM. 18:04:21 HR=57 bpm, LOMB=010/60 mmhg, SpO2=96.0 %, Resp=18 B/min 18:05:10 Interventional wire has crossed the lesion 18:08:42 Wire removed 18:09:43 A WIRE, ASAHI MIRACLEBROS 12 300CM 300CM was inserted via Radial (right). 18:09:53 HR=56 bpm, NIBP=96/60 mmhg, Resp=13 B/min 18:10:20 Activated Clotting Time Drawn A BALLOON, 2.0 X 15 MAVERICK (OTW) 2.0 X 15 over a WIRE, ASAHI MIRACLEBROS 12 300CM 300CM in th e CIRC 18:12:59 Prox was inflated using a 30 JENNIFFER INDEFLATOR at 12 jenniffer for 15 sec. A BALLOON, 2.0 X 15 MAVERICK (OTW) 2.0 X 15 over a WIRE, ASAHI MIRACLEBROS 12 300CM 300CM in th e CIRC 18:13:34 Prox was inflated using a 30 JENNIFFER INDEFLATOR at 12 jenniffer for 15 sec. A BALLOON, 2.0 X 15 MAVERICK (OTW) 2.0 X 15 over a WIRE, ASAHI MIRACLEBROS 12 300CM 300CM in th e CIRC 18:14:07 Prox was inflated using a 30 JENNIFFER INDEFLATOR at 12 jenniffer for 30 sec. 18:14:19 HR=64 bpm, HNVB=819/72 mmhg, SpO2=96.0 %, Resp=11 B/min A BALLOON, 2.0 X 15 MAVERICK (OTW) 2.0 X 15 over a WIRE, ASAHI MIRACLEBROS 12 300CM 300CM in th e CIRC 18:14:20 Prox was inflated using a 30 JENNIFFER INDEFLATOR at 12 jenniffer for 15 sec. 18:15:54 Balloon pulled back into the guide. 18:16:52 The LCA was injected and visualized at various angles. OMNIPAQUE, 350 MG, 100ML 100ML used . 18:17:18 Catheter, balloon and wire were removed 18:18:26 Case End 18:19:22 HR=63 bpm, ZAMF=430/71 mmhg, SpO2=99.0 %, Resp=22 B/min Radial Compression Device Used. 14 mLs of air placed in BAND, RADIAL COMPRESSION TR SHORT 24 24 CM. Affected 18:19:44 hand 97 % O2 saturation. 18:22:06 ACT (Normal Range 90-180) = 226 18:24:23 HR=69 bpm, ICCP=768/68 mmhg, SpO2=97.0 %, Resp=19 B/min, Shonda=10 Assessment: Final Case, HR=67 BPM, Rhythm=sr, OOQQ=150/68 mmhg, Chest Pain=0 Right Pulses: Randal Ped=0, Femoral=d, Radial=2 18:25:08 Left Pulses: Randal Ped=0, Femoral=d Neurological: State=Alert, Ox3, ST Respiration: Resp=17 B/min, SpO2=97 % 18:29:20 AUQJ=765/79 mmhg 18:33:37 Vitals capture stopped. 18:34:09 Patient moved to bed 18:36:04 Patient transported to CPCU. End Study - Contrast Media Used In Study Contrast Total Opened (mL) Total Used (mL) Total Wasted (mL) Omnipaque 50 50 0 End Study - Maximum Contrast Load Max Contrast Load (mL) 375.0 End Study - Radiation Exposure Fluoro Time (minutes) 28.7 End Study - Sheaths Sheaths Pulled By Sheath Hold Time (min) Flakito Montenegro End Study - Patient Disposition Complications Transferred To Interventional Outcome No Critical Care Bed unsuccessful
--- NOTE | 2017-10-20 19:53 | MA ---
cc: JUANA MOELLER M.D. DATE: 10/20/2017 PROCEDURE PERFORMED: Unsuccessful access of either femoral artery, right radial arterial access, coronary angiography, unsuccessful angioplasty of the circumflex occlusion. BRIEF HISTORY Cornell Leyva is a 57-year-old man who underwent stenting of the circumflex artery by Dr. Arguelles February 06, 2017. He was noncompliant with his Plavix. He has come in with congestive heart failure. He has been hypotensive. His cardiac enzymes are elevated. He is only 57 and so I decided to see if we can help him by revascularizing the circumflex. DESCRIPTION OF THE PROCEDURE IN DETAIL: He was brought to the cardiac cath lab radiology technician in a fasting state. Both groins were accessed but unable to pass a guidewire due to suspected iliac occlusions. I then went to the right radial arterial approach. Access was easily obtained. A Terumo slender sheath was inserted. Standard cocktail was administered. The cocktail included 200 micrograms of nitroglycerin, 2.5 milligrams of Verapamil and 2500 units of heparin. Coronary angiography was completed using a [place] catheter. The circumflex artery is totally occluded proximally just off the left main. It is the left dominant circulation. I then tried a BMW wire and was unable to cross with a Fielder XT even with a 2 mm balloon or back up I could not cross with a 2 mm balloon and a 15 gram Miracle Wire I got all the way to the stent with the wire and the balloon but when I got to the distal end of the stent, the wire would not pass freely and I figured out I was in a subintimal location. I dilated along the stent prior to this but I was unable to get the wire into an intraluminal position distally to open it up. I had to cancel the procedure. The patient tolerated the procedure well. There were no ischemic complications. The estimated blood loss was 30 cc. FINDINGS: 1. Hemodynamics: The aortic pressure is only 75/50 with a mean of 61. 2. Coronary angiography: The left main coronary artery appears normal. The left anterior descending artery has irregularities about 20% near the second septal and second diagonal branch. There are [id number] collaterals to the circumflex artery. The right coronary artery is nondominant and also provides a few collaterals to the circumflex artery. 3. Results of the intervention: Despite getting a wire and a balloon all the way through the occluded stent, I was not able to get into an intraluminal position distal to the stent to revascularize the circumflex. RECOMMENDATIONS: Medical management. PROGNOSIS: The prognosis at this time is poor because his blood pressure is low, he had a very poor left ventricular function and his dominant circumflex is totally occluded. MD BRANDON Paul/JORGE ALBERTO /6:12 PM /7:14 PM
[2017-10-20] MEDS: METOPROLOL TARTRATE 25 MG TAB PO SCH (21:00)
[2017-10-20] MEDS ORDERED: PILL SPLITTER OTHER PRN (21:00)
[2017-10-20] MEDS: ATORVASTATIN 10 MG TAB PO SCH (21:11)
--- NOTE | 2017-10-20 22:11 | EKG ---
Date Performed: 10/19/2017 Time Performed: 23:57:22 PTAGE: 57 years EKG: Sinus rhythm Left axis deviation Inferior/lateral ST-T changes are nonspecific Abnormal ECG PREVIOUS TRACING : 10/19/2017 19.29 Compared to prior tracing no significant change DOCTOR: Odilon Feliz Interpretating Date/Time 10/20/2017 22:09:49
--- NOTE | 2017-10-20 22:44 | EKG ---
Date Performed: 10/19/2017 Time Performed: 19:29:26 PTAGE: 57 years EKG: Sinus rhythm . Left axis deviation Possible inferior infarct - age undetermined Lateral ST-T changes are nonspecif ic Low QRS voltages in limb leads Abnormal ECG NO PREVIOUS TRACING DOCTOR: Odilon Feliz Interpretating Date/Time 10/20/2017 22:44:08
[2017-10-21] VITALS (30 sets, daily range): BP systolic 85–124; BP diastolic 56–75; PULSE 56–96; RESP 17–19; TEMP 97.7–98.2; O2SAT 95–98
[2017-10-21] MEDS: methylPREDNISolone SOD SUCC 40 MG/1 ML VIAL IV PUSH SCH ×4 (01:10→17:40)
[2017-10-21] MEDS: RESP: ALBUTEROL 2.5 MG/IPRATROPIUM 0.5 MG NEB (SCH) NEB ×4 (03:54→20:35)
[2017-10-21 04:27] LABS: AUTOMATED NEUTROPHIL # 7.1 TH/MM3 (1.8-7.7); BASOPHIL % 0.5 % (0.0-2.0); EOSINOPHIL % 0.2 % (0.0-4.0); HEMATOCRIT 39.8 % (39.0-51.0); HEMOGLOBIN 13.7 GM/DL (13.0-17.0); LYMPH % 20.3 % (9.0-44.0); LYMPHOCYTE # 1.9 TH/MM3 (1.0-4.8); MEAN CELL VOLUME 100.2 FL (80.0-100.0); MEAN CORPUSCULAR HEMOGLOBIN 34.5 PG (27.0-34.0); MEAN CORPUSCULAR HGB CONC 34.4 % (32.0-36.0); MEAN PLATELET VOLUME 8.3 FL (7.0-11.0); MONO % 4.8 % (0.0-8.0); MONOCYTE # 0.5 TH/MM3 (0-0.9); NEUT % 74.2 % (16.0-70.0); PLATELET COUNT 158 TH/MM3 (150-450); RED BLOOD COUNT 3.97 MIL/MM3 (4.50-5.90); RED CELL DISTRIBUTION WIDTH 14.3 % (11.6-17.2); WHITE BLOOD COUNT 9.5 TH/MM3 (4.0-11.0)
[2017-10-21] MEDS: NITROGLYCERIN 2% OINT 1 GM PACKET TOP SCH ×4 (04:49→20:49)
[2017-10-21] MEDS: LEVOTHYROXINE SODIUM 88 MCG TAB PO SCH (04:51)
[2017-10-21 04:59] LABS: ALBUMIN 3.1 GM/DL (3.4-5.0); ALT (GPT) 191 U/L (12-78); AST (GOT) 54 U/L (15-37); BICARBONATE 28.5 MEQ/L (21.0-32.0); BLOOD UREA NITROGEN 21 MG/DL (7-18); CALCIUM 8.2 MG/DL (8.5-10.1); CHLORIDE 107 MEQ/L (98-107); CREATININE 0.93 MG/DL (0.60-1.30); GLOMERULAR FILTRATION RATE 84 ML/MIN (>89); GLUCOSE,RANDOM 100 MG/DL (74-106); PHOSPHORUS 2.6 MG/DL (2.5-4.9); SODIUM (NA) 141 MEQ/L (136-145)
[2017-10-21 05:01] LABS: ALKALINE PHOSPHATASE 104 U/L (45-117); TOTAL BILIRUBIN ADULT 0.4 MG/DL (0.2-1.0); TOTAL PROTEIN 5.8 GM/DL (6.4-8.2)
--- NOTE | 2017-10-21 07:55 | HHI.PR ---
Subjective Remarks Patient in bed. He is breathing well on room air. He was noted ambulating without problems. He denies any chest pain or sob. No wheezing at this time. No fever or chills. has no cough. Objective Vitals Vital Signs Date Time Temp Pulse Resp B/P (MAP) Pulse Ox O2 Delivery O2 Flow Rate FiO2 10/21/17 07:00 60 10/21/17 06:00 61 10/21/17 05:00 60 10/21/17 04:51 98.0 60 18 124/63 (83) 95 10/21/17 04:00 60 10/21/17 03:57 96 10/21/17 03:09 96 Room Air 10/21/17 03:00 64 10/21/17 02:00 56 10/21/17 01:00 57 10/21/17 00:00 57 10/20/17 23:59 98.1 62 18 92/55 (67) 96 10/20/17 23:58 95 Room Air 10/20/17 23:00 77 10/20/17 22:02 96 21 10/20/17 22:00 72 10/20/17 22:00 96 21 10/20/17 22:00 96 21 10/20/17 21:00 66 10/20/17 20:55 96 Room Air 10/20/17 20:53 97.3 81 18 96/62 (73) 95 10/20/17 20:00 78 10/20/17 19:00 77 10/20/17 16:00 68 10/20/17 15:00 97.6 62 18 85/50 (62) 94 10/20/17 15:00 65 10/20/17 15:00 94 Room Air 10/20/17 14:00 68 10/20/17 13:00 70 10/20/17 12:00 88 10/20/17 11:00 98.1 86 18 92/56 (68) 95 10/20/17 11:00 95 Room Air 10/20/17 11:00 85 10/20/17 10:00 84 10/20/17 09:11 94 Nasal Cannula 1.00 10/20/17 09:00 74 10/20/17 08:00 62 I/O 10/20/17 10/20/17 10/20/17 10/21/17 10/21/176/18 07:00 15:00 23:00 07:00 15:00 23:00 Intake Total 780 ml 240 ml 1620 ml Output Total 1375 ml 1020 ml 460 ml Balance -595 ml -780 ml 1160 ml Intake Oral 780 ml 240 ml 620 ml IV Total 1000 ml Output Urine Total 1375 ml 1020 ml 460 ml Stool Total 0 ml # Bowel Movements 0 Result Diagram: 10/21/17 0419 10/21/17 0419 Imaging Last Impressions Chest X-Ray 10/19/17913 Signed Impressions: Service Date/Time: October 09:23 - CONCLUSION: 1. Cardiomegaly and findings of congestive heart failure. Cruz Lovell MD Objective Remarks GENERAL: Awake alert oriented 3 talkative and cooperative CARDIOVASCULAR: Regular rate and rhythm. S1 and S2 no S3 or S4 RESPIRATORY: No accessory muscle use. Coarse breath sounds bilaterally Breath sounds equal bilaterally. GASTROINTESTINAL: Abdomen soft, non-tender, nondistended. Hepatic and splenic margins not palpable. MUSCULOSKELETAL: Extremities without clubbing, cyanosis, or edema. No obvious deformities. NEUROLOGICAL: Awake and alert. No obvious cranial nerve deficits. Motor grossly within normal limits. 4 out of 5 muscle strength in the arms and legs. Normal speech. PSYCHIATRIC: INAppropriate mood and affect; insight and judgment ABnormal. A/P Problem List: (1) Tobacco abuse ICD Code: Z72.0 - Tobacco use (2) Noncompliance ICD Code: Z91.19 - Patient's noncompliance with other medical treatment and regimen (3) COPD (chronic obstructive pulmonary disease) ICD Code: J44.9 - Chronic obstructive pulmonary disease, unspecified (4) Seizure ICD Code: R56.9 - Unspecified convulsions (5) Hypothyroidism ICD Code: E03.9 - Hypothyroidism, unspecified (6) Coronary artery disease ICD Code: I25.10 - Atherosclerotic heart disease of [place] coronary artery without angina pectoris (7) NSTEMI (non-ST elevated myocardial infarction) ICD Code: I21.4 - Non-ST elevation (NSTEMI) myocardial infarction Status: Acute (8) Congestive heart failure ICD Code: I50.9 - Heart failure, unspecified Status: Acute Assessment and Plan Systolic Congestive heart failure with reduced EF of 25% Will diurese with Lasix will replace with potassium echocardiogram EF of 25% per echo We'll trend troponins went up to over 2 now starting to trend down Consult cardiology a.m. labs COPD continue on Mucinex Continue on steroids Continue on DuoNeb's Hold off on antibiotics at this time Hypothyroidism check TSH and free T4 obtain home medication dose of Synthroid Seizure disorder check a Dilantin level obtained his home dose of Dilantin and restart if able Non-ST elevation CA consult cardiology, appreciate recommendations Has a history of right circumflex stenting and is occluded S/p unsuccessful cardiac cath by Dr Montenegro 10/20/17. Dominant circumflex is totally occluded Echo reviewed EF 25-30% Aspirin and Plavix and Lovenox on beta blockers and jorge inhibitors if can tolerate Continue statin Tobacco abuse recommend smoking cessation NicoDerm patch 14 mg daily Dyslipidemia can continue on Lipitor Noncompliance recommend patient take his medications and follow-up after discharge Consult case management DVT prophylaxis with Lovenox GI prophylaxis with Pepcid Discussed with patient, nurse Discharge Planning Pending cardiac clearance Problem Qualifiers (1) Congestive heart failure: Qualified Codes: I50.9 - Heart failure, unspecified Barbi Mcmahan MD Oct 21, 2017 07:55
[2017-10-21] MEDS: SODIUM CHLORIDE 0.9% FLUSH 10 ML FLUSH IV FLUSH SCH ×2 (08:50→20:48)
[2017-10-21] MEDS: CLOPIDOGREL 75 MG TAB PO SCH (08:50)
[2017-10-21] MEDS: DOCUSATE SODIUM 50 MG/SENNA 8.6 MG TAB PO SCH ×2 (08:50→20:48)
[2017-10-21] MEDS: ASPIRIN 81 MG CHEW TAB PO SCH (08:50)
[2017-10-21] MEDS: FUROSEMIDE 40 MG TAB PO SCH (08:50)
[2017-10-21] MEDS: FAMOTIDINE 20 MG TAB PO SCH ×2 (08:51→20:48)
[2017-10-21] MEDS: POTASSIUM CHLORIDE 20 MEQ CONTROLLED RELEASE TAB PO SCH (08:51)
[2017-10-21] MEDS: guaiFENesin E.R. 600 MG TAB PO SCH ×2 (08:51→20:48)
[2017-10-21] MEDS: PHENYTOIN SODIUM 100 MG CAP PO SCH ×4 (08:51→20:48)
[2017-10-21] MEDS: METOPROLOL TARTRATE 25 MG TAB PO SCH ×2 (08:51→20:47)
[2017-10-21] MEDS: LISINOPRIL 5 MG TAB PO SCH (08:52)
[2017-10-21] MEDS: REMOVE OLD PATCH T-DERMAL SCH (08:52)
[2017-10-21] MEDS ORDERED: NITR0.4S SL (09:27)
[2017-10-21] MEDS ORDERED: VENTAER INH (09:27)
[2017-10-21] MEDS ORDERED: FURO40TA PO (09:27)
[2017-10-21] MEDS ORDERED: PLAV75TA29 PO (09:27)
[2017-10-21] MEDS ORDERED: INSPIREASE DRUG1 EA (09:27)
[2017-10-21] MEDS ORDERED: PRED20 PO (09:27)
[2017-10-21] MEDS ORDERED: ASPI81 PO (09:27)
[2017-10-21] MEDS ORDERED: IPRA17I INH (09:27)
[2017-10-21] MEDS ORDERED: LISI-519 PO (09:27)
[2017-10-21] MEDS ORDERED: METO25TA3 PO (09:27)
[2017-10-21] MEDS ORDERED: NEBULIZER1 MI1 (09:27)
[2017-10-21] MEDS ORDERED: IPRASOL INH (09:27)
[2017-10-21] MEDS ORDERED: LIPI10TA PO (09:27)
--- NOTE | 2017-10-21 09:27 | HHI.DS ---
Discharge Summary Admission Date Oct 19, 2017 at 11:42 Discharge Date: Oct 22, 2017 Admitting Diagnosis congestive heart failure, NSTEMI (1) Tobacco abuse ICD Code: Z72.0 - Tobacco use Diagnosis: Secondary (2) Noncompliance ICD Code: Z91.19 - Patient's noncompliance with other medical treatment and regimen Diagnosis: Secondary (3) COPD (chronic obstructive pulmonary disease) ICD Code: J44.9 - Chronic obstructive pulmonary disease, unspecified Diagnosis: Secondary (4) Seizure ICD Code: R56.9 - Unspecified convulsions Diagnosis: Secondary (5) Coronary artery disease ICD Code: I25.10 - Atherosclerotic heart disease of [place] coronary artery without angina pectoris Diagnosis: Secondary (6) NSTEMI (non-ST elevated myocardial infarction) ICD Code: I21.4 - Non-ST elevation (NSTEMI) myocardial infarction Diagnosis: Principal Status: Acute (7) Congestive heart failure ICD Code: I50.9 - Heart failure, unspecified Diagnosis: Principal Status: Acute Procedures CARDIAC CATH Brief History - From Admission Patient is a 57-year-old gentleman. He presented to the emergency department here at [facility] chief complaint of shortness of breath for 1 day. Patient states his symptoms started this morning with increased work of breathing and shortness of breath. Patient complained of chest tightness, shortness of breath, and wheezing. Does have a history of bronchitis.. Denies any known history of COPD. Does has a history of tobacco use still actively smoking used to smoke about 2 packs now smokes only about one pack per day. Denies any history of pulmonary embolism, denies any history of DVT, denies any history of congestive heart failure, or any recent hospitalizations. Denies any edema. Denies any fever chills or sweats. Does have a positive cough, denies any body aches or nausea, vomiting, diarrhea, or abdominal pain. He has history of a previous cardiac stent placed at [facility] in January 2017 Was supposed to be on blood thinners but are not sure if he is actually taking anything for this CBC/BMP: [id number]/21/1741810/21/17418 Significant Findings Laboratory Tests Test 10/19/17 09:21 10/19/17 13:16 10/19/17 17:33 10/20/17 00:52 White Blood Count 15.5 TH/MM3 (4.0-11.0) Mean Corpuscular Volume 103.3 FL (80.0-100.0) Mean Corpuscular Hemoglobin 34.4 PG (27.0-34.0) Neutrophils (%) (Auto) 79.3 % (16.0-70.0) Neutrophils # (Auto) 12.3 TH/MM3 (1.8-7.7) Blood Urea Nitrogen 20 MG/DL (7-18) 21 MG/DL (7-18) Random Glucose 248 MG/DL (74-106) 117 MG/DL (74-106) Albumin 3.1 GM/DL (3.4-5.0) 3.0 GM/DL (3.4-5.0) Calcium Level 8.0 MG/DL (8.5-10.1) 8.0 MG/DL (8.5-10.1) Alkaline Phosphatase 133 U/L (45-117) Aspartate Amino Transf (AST/SGOT) 212 U/L (15-37) 76 U/L (15-37) Alanine Aminotransferase (ALT/SGPT) 289 U/L (12-78) 210 U/L (12-78) Estimat Glomerular Filtration Rate 63 ML/MIN (>89) 86 ML/MIN (>89) Troponin I 0.85 NG/ML (0.02-0.05) 1.00 NG/ML (0.02-0.05) 2.34 NG/ML (0.02-0.05) 2.21 NG/ML (0.02-0.05) B-Type Natriuretic Peptide 806 PG/ML (0-100) Creatine Kinase MB 5.5 NG/ML (0.5-3.6) 10.2 NG/ML (0.5-3.6) 7.6 NG/ML (0.5-3.6) Phenytoin (Dilantin) Level 5.0 MCG/ML (10.0-20.0) Total Protein 5.9 GM/DL (6.4-8.2) Test 1/5/18 04:33 10/20/17 12:09 10/21/17 04:19 Red Blood Count 4.05 MIL/MM3 (4.50-5.90) 3.97 MIL/MM3 (4.50-5.90) Mean Corpuscular Volume 100.8 FL (80.0-100.0) 100.2 FL (80.0-100.0) Neutrophils (%) (Auto) 81.0 % (16.0-70.0) 74.2 % (16.0-70.0) Neutrophils # (Auto) 8.2 TH/MM3 (1.8-7.7) Mean Corpuscular Hemoglobin 34.5 PG (27.0-34.0) Blood Urea Nitrogen 21 MG/DL (7-18) Total Protein 5.8 GM/DL (6.4-8.2) Albumin 3.1 GM/DL (3.4-5.0) Calcium Level 8.2 MG/DL (8.5-10.1) Aspartate Amino Transf (AST/SGOT) 54 U/L (15-37) Alanine Aminotransferase (ALT/SGPT) 191 U/L (12-78) Estimat Glomerular Filtration Rate 84 ML/MIN (>89) Imaging Last Impressions Chest X-Ray 10/19/17 0914 Signed Impressions: Service Date/Time: October 09:23 - CONCLUSION: 1. Cardiomegaly and findings of congestive heart failure. Cruz Lovell MD PE at Discharge GENERAL: Awake alert oriented 3 talkative and cooperative CARDIOVASCULAR: Regular rate and rhythm. S1 and S2 no S3 or S4 RESPIRATORY: No accessory muscle use. Coarse breath sounds bilaterally Breath sounds equal bilaterally. GASTROINTESTINAL: Abdomen soft, non-tender, nondistended. Hepatic and splenic margins not palpable. MUSCULOSKELETAL: Extremities without clubbing, cyanosis, or edema. No obvious deformities. NEUROLOGICAL: Awake and alert. No obvious cranial nerve deficits. Motor grossly within normal limits. 4 out of 5 muscle strength in the arms and legs. Normal speech. PSYCHIATRIC: INAppropriate mood and affect; insight and judgment ABnormal. Hospital Course Congestive heart failure Will diurese with Lasix will replace with potassium echocardiogram EF of 25% per echo HAD CATH BUT INTERVENTION WAS NOT ABLE TO BE DONE COPD continue on Mucinex Continue on steroids Continue on DuoNeb's Hold off on antibiotics at this time Hypothyroidism check TSH and free T4 obtain home medication dose of Synthroid Seizure disorder check a Dilantin level obtained his home dose of Dilantin and restart if able Non-ST elevation ND consult cardiology Trend troponins Echo Aspirin and Plavix and Lovenox on beta blockers and jorge inhibitors if can tolerate Continue statin Has history of right circumflex stenting THAT IS OCCLUDED PER CATH Tobacco abuse recommend smoking cessation NicoDerm patch 14 mg daily ELEVATED LFTS MONITOR Dyslipidemia can continue on Lipitor Noncompliance recommend patient take his medications and follow-up after discharge - Consult case management DVT prophylaxis with Lovenox GI prophylaxis with Pepcid HAD CARDIAC CATH WAS NOT ABLE TO HAVE INTERVENTION Discussed with cardiology NEEDS LIFEVEST PER CARDIOLOGY Pt Condition on Discharge: Stable Discharge Disposition: Discharge Home Discharge Time: <= 30 minutes Discharge Instructions DIET: Follow Instructions for: Heart Healthy Diet Speech Therapy-Diet Recommends: Regular Activities you can perform: Regular-No Restrictions Follow up Referrals: Cardiology - 1 Week PCP Follow-up - 2-3 Days New Medications: Albuterol 18 GM Inh (Ventolin Hfa 18 GM Inh) 90 Mcg/Act Aer 2 PUFF INH Q4H PRN for SHORTNESS OF BREATH, #1 INHALER 0 Refills Defibrillator Jacket (Defibrillator Jacket) 1 Ea Device EA EXTERNAL ONCE for Angina, #1 Energy = 150 Joules; VT Threshold = 150 BPM; VF Threshold = 200 BPM Use up to 90 days only Ipratropium HFA 12.9 GM Inh (Atrovent HFA 12.9 GM Inh) 17 Mcg/Actuation Aer 2 PUFF INH Q6HR PRN for SHORTNESS OF BREATH, #1 INHALER 0 Refills Ipratropium-Albuterol Neb (Duoneb) 0.5-2.5 Mg/3 Ml Neb 1 NEBULE INH Q4HR NEB for Breathing Treatment, #180 NEBULE 0 Refills Nebulizer (Nebulizer) 1 Mis Mis EA .ROUTE DIRECTED for Breathing Treatment, #1 0 Refills Nicotine Patch (Nicoderm CQ Patch) 21 Mg/24 Hr Patch 21 MG T-DERMAL DAILY for Smoking Cessation, #30 PATCH 0 Refills Prednisone (Prednisone) 20 Mg Tab 20 MG PO DIRECTED for Inflammation, #11 TAB 0 Refills 40 MG twice a day x 3 days, then 20 MG daily x 3 days, then 10 MG daily x 3 days Spacer/Device For Mdi ([employer] Drug Delivery) 1 Ea Mis EA .ROUTE DIRECTED, #1 0 Refills Aspirin (Tgt Aspirin) 81 Mg Chw 81 MG PO DAILY for Blood Clot Prevention, #30 EA Atorvastatin (Lipitor) 10 Mg Tab 10 MG PO HS for Cholesterol Management, #30 TAB Clopidogrel (Plavix) 75 Mg Tab 75 MG PO DAILY for Blood Clot Prevention, #30 TAB Furosemide (Furosemide) 40 Mg Tab 40 MG PO DAILY for Blood Pressure Management, #30 TAB Lisinopril (Lisinopril) 5 Mg Tab 5 MG PO DAILY for Blood Pressure Management, #30 TAB Metoprolol Tartrate (Metoprolol Tartrate) 25 Mg Tab 12.5 MG PO Q12HR for Blood Pressure Management, #60 TAB Nitroglycerin SL (Nitrostat SL) 0.4 Mg Subl 0.4 MG SL Q5M PRN for CHEST PAIN, #30 TAB Continued Medications: Levothyroxine (Levothyroxine) 88 Mcg Tab 88 MCG PO DAILY for Thyroid, #30 TAB 0 Refills (This prescription has been renewed) Phenytoin Extended (Dilantin) 100 Mg Cap 100 MG PO QID for Control Seizures, #120 CAP 0 Refills (This prescription has been renewed) Barbi Mcmahan MD Oct 21, 2017 09:27 Vinod Ladd DO Oct 22, 2017 11:53
[2017-10-21] MEDS: SODIUM CHLOR 0.9% 1000 ML INJ 1,000 ML IV SCH (10:00)
--- NOTE | 2017-10-21 12:04 | PD.CARD.PN ---
Subjective Subjective Remarks no Cardiovascular complaints Denies chest pain, SOB, palpitations or syncope Ambulating without difficulty Objective Medications Current Medications Medications (Trade) Dose Ordered Sig/Jumana Route Start Time Stop Time Status Last Admin (Plavix) 75 mg DAILY PO 10/19/17 13:00 10/21/17 08:50 (Nitroglycerin 2% Oint) 1 inch Q6H TOP 10/19/17 14:00 10/21/17 08:49 (Nitrostat Sl) 0.4 mg Q5M PRN SL 10/19/17 12:30 (Tylenol) 650 mg Q6H PRN PO 10/19/17 12:30 (Xanax) 0.25 mg Q8H PRN PO 10/19/17 12:30 10/20/17 22:23 (Lipitor) 10 mg HS PO 10/19/17 21:00 10/20/17 21:11 (Zofran Inj) 4 mg Q6H PRN IVP 10/19/17 12:30 (Reglan Inj) 5 mg Q6H PRN IV PUSH 10/19/17 12:30 (Ambien) 5 mg HS PRN PO 10/19/17 12:30 (Tylenol) 650 mg Q6H PRN PO 10/19/17 12:30 (Percocet 5-325 Mg) 1 tab Q6H PRN PO 10/19/17 12:30 (Percocet 10-325 Mg) 1 tab Q6H PRN PO 10/19/17 12:30 (Morphine Inj) 2 mg Q3H PRN IV PUSH 10/19/17 12:30 (Morphine Inj) 4 mg Q3H PRN IV PUSH 10/19/17 12:30 (Narcan Inj) 0.4 mg UNSCH PRN IV PUSH 10/19/17 12:30 (Lillian-Colace) 1 tab BID PO 10/19/17 21:00 10/21/17 08:50 (Milk Of Magnesia Liq) 30 ml Q12H PRN PO 10/19/17 12:30 (Senokot) 17.2 mg Q12H PRN PO 10/19/17 12:30 (Dulcolax Supp) 10 mg DAILY PRN RECTAL 10/19/17 12:30 (Lactulose Liq) 30 ml DAILY PRN PO 10/19/17 12:30 (Romazicon Inj) 0.2 mg Q1M PRN IV PUSH 10/19/17 12:30 (Ativan) 1 mg Q4H PRN PO 10/19/17 12:30 (Ativan Inj) 1 mg Q4H PRN IV PUSH 10/19/17 12:30 (Ativan) 2 mg Q2H PRN PO 10/19/17 12:30 (Ativan Inj) 2 mg Q2H PRN IV PUSH 10/19/17 12:30 (Ativan Inj) 2 mg Q1H PRN IV PUSH 10/19/17 12:30 (Ativan Inj) 2 mg Q15M PRN IV PUSH 10/19/17 12:30 (Haldol Inj) 2 mg Q15M PRN IM 10/19/17 12:30 (Mucinex Er) 600 mg BID PO 10/19/17 13:00 10/21/17 08:51 (SoluMEDROL INJ) 40 mg Q6HR IV PUSH 10/19/17 18:00 10/21/17 04:50 Miscellaneous Information 1 DAILY T-DERMAL 10/20/17 09:00 10/21/17 08:52 (Duoneb Neb) 1 ampule Q6HR NEB NEB 10/19/17 16:00 10/21/17 09:26 (Duoneb Neb) 1 ampule Q2HR NEB PRN NEB 10/19/17 12:30 (Pepcid) 20 mg BID PO 10/19/17 13:00 10/21/17 08:51 (Aspirin Chew) 81 mg DAILY PO 10/20/17 09:00 10/21/17 08:50 (Prinivil) 5 mg DAILY PO 10/19/17 14:00 10/20/17 08:15 (Synthroid) 88 mcg DAILY@0600 PO 10/20/17 09:15 10/21/17 04:51 (Dilantin) 100 mg QID PO 10/20/17 13:00 10/21/17 08:51 (Lopressor) 12.5 mg Q12HR PO 10/20/17 21:00 Sodium Chloride 1,000 ml @ 30 mls/hr Q24H IV 10/20/17 10:00 10/25/17 09:59 10/20/17 14:32 (Benadryl) 50 mg SALES MANAGER PO 10/20/17 10:15 10/24/17 10:14 (Valium) 5 mg SALES MANAGER PO 10/20/17 10:15 10/24/17 10:14 (Pill Splitter) 1 ea UNSCH PRN OTHER 10/20/17 21:00 (Zofran Inj) 4 mg Q6H PRN IVP 10/20/17 18:30 (NS Flush) 2 ml UNSCH PRN IV FLUSH 10/20/17 18:30 (NS Flush) 2 ml BID IV FLUSH 10/20/17 21:00 10/21/17 08:50 (Lasix) 40 mg DAILY PO 10/21/17 09:00 10/21/17 08:50 (KCl) 20 meq DAILY PO 10/21/17 09:00 10/21/17 08:51 Vital Signs / I&O Vital Signs Date Time Temp Pulse Resp B/P (MAP) Pulse Ox O2 Delivery O2 Flow Rate FiO2 10/21/17 11:00 98.2 82 19 104/63 (77) 98 10/21/17 11:00 79 10/21/17 11:00 98 Room Air 10/21/17 10:00 92 10/21/17 09:26 97 21 10/21/17 09:00 65 10/21/17 08:00 97.7 78 19 85/58 (67) 98 10/21/17 08:00 59 10/21/17 07:00 98 Room Air 10/21/17 07:00 60 10/21/17 06:00 61 10/21/17 05:00 60 10/21/17 04:51 98.0 60 18 124/63 (83) 95 10/21/17 04:00 60 10/21/17 03:57 96 10/21/17 03:09 96 Room Air 10/21/17 03:00 64 10/21/17 02:00 56 10/21/17 01:00 57 10/21/17 00:00 57 10/20/17 23:59 98.1 62 18 92/55 (67) 96 10/20/17 23:58 95 Room Air 10/20/17 23:00 77 10/20/17 22:02 96 21 10/20/17 22:00 72 1/5/18 22:00 96 21 10/20/17 22:00 96 21 10/20/17 21:00 66 10/20/17 20:55 96 Room Air 10/20/17 20:53 97.3 81 18 96/62 (73) 95 10/20/17 20:00 78 10/20/17 19:00 77 10/20/17 16:00 68 10/20/17 15:00 97.6 62 18 85/50 (62) 94 10/20/17 15:00 65 10/20/17 15:00 94 Room Air 10/20/17 14:00 68 10/20/17 13:00 70 I/O 10/20/17 10/20/17 10/20/17 10/21/17 10/21/17 10/21/17 07:00 15:00 23:00 07:00 15:00 23:00 Intake Total 780 ml 240 ml 1620 ml Output Total 1375 ml 1020 ml 460 ml Balance -595 ml -780 ml 1160 ml Intake Oral 780 ml 240 ml 620 ml IV Total 1000 ml Output Urine Total 1375 ml 1020 ml 460 ml Stool Total 0 ml # Bowel Movements 0 Physical Exam GENERAL: Well-nourished, well-developed patient. SKIN: Warm and dry. HEAD: Normocephalic. EYES: No scleral icterus. No injection or drainage. NECK: Supple, trachea midline. No JVD or lymphadenopathy. CARDIOVASCULAR: Regular rate and rhythm without murmurs, gallops, or rubs. RESPIRATORY: Breath sounds equal bilaterally. No accessory muscle use. GASTROINTESTINAL: Abdomen soft, non-tender, nondistended. EXTREMITIES: No cyanosis, or edema. NEUROLOGICAL: Awake, alert, and oriented x 3. Non-focal. Laboratory Laboratory Tests Test 10/20/17 12:09 10/21/17 04:19 Prothrombin Time 11.4 SEC Prothromb Time International Ratio 1.1 RATIO White Blood Count 9.5 TH/MM3 Red Blood Count 3.97 MIL/MM3 Hemoglobin 13.7 GM/DL Hematocrit 39.8 % Mean Corpuscular Volume 100.2 FL Mean Corpuscular Hemoglobin 34.5 PG Mean Corpuscular Hemoglobin Concent 34.4 % Red Cell Distribution Width 14.3 % Platelet Count 158 TH/MM3 Mean Platelet Volume 8.3 FL Neutrophils (%) (Auto) 74.2 % Lymphocytes (%) (Auto) 20.3 % Monocytes (%) (Auto) 4.8 % Eosinophils (%) (Auto) 0.2 % Basophils (%) (Auto) 0.5 % Neutrophils # (Auto) 7.1 TH/MM3 Lymphocytes # (Auto) 1.9 TH/MM3 Monocytes # (Auto) 0.5 TH/MM3 Eosinophils # (Auto) 0.0 TH/MM3 Basophils # (Auto) 0.0 TH/MM3 CBC Comment DIFF FINAL Differential Comment Blood Urea Nitrogen 21 MG/DL Creatinine 0.93 MG/DL Random Glucose 100 MG/DL Total Protein 5.8 GM/DL Albumin 3.1 GM/DL Calcium Level 8.2 MG/DL Phosphorus Level 2.6 MG/DL Magnesium Level 2.0 MG/DL Alkaline Phosphatase 104 U/L Aspartate Amino Transf (AST/SGOT) 54 U/L Alanine Aminotransferase (ALT/SGPT) 191 U/L Total Bilirubin 0.4 MG/DL Sodium Level 141 MEQ/L Potassium Level 4.1 MEQ/L Chloride Level 107 MEQ/L Carbon Dioxide Level 28.5 MEQ/L Anion Gap 6 MEQ/L Estimat Glomerular Filtration Rate 84 ML/MIN Total Creatine Kinase 76 U/L Imaging Last Impressions Chest X-Ray 10/19/17 0914 Signed Impressions: Service Date/Time: October 09:23 - CONCLUSION: 1. Cardiomegaly and findings of congestive heart failure. Cruz Lovell MD Assessment and Plan Problem List: (1) NSTEMI (non-ST elevated myocardial infarction) ICD Codes: I21.4 - Non-ST elevation (NSTEMI) myocardial infarction Status: Acute Plan: Non-ST elevation [place]. S/P [facility] unsuccesfull intervention to dominant right circumflex in the setting of occlusion of previous stent Echo EF 25-30% No CV complaints Ambulating without difficulty Recommendations Aggressive medical management for CAD with Aspirin, Plavix, statins, beta blockers, jorge inhibitors and long acting nitrates as tolerate by BP and HR CM/SW consult Life Vest prior to discharge Follow up with Dr. Montenegro upon discharge (2) COPD (chronic obstructive pulmonary disease) ICD Codes: J44.9 - Chronic obstructive pulmonary disease, unspecified (3) Congestive heart failure ICD Codes: I50.9 - Heart failure, unspecified Status: Acute (4) Hypothyroidism ICD Codes: E03.9 - Hypothyroidism, unspecified (5) Noncompliance ICD Codes: Z91.19 - Patient's noncompliance with other medical treatment and regimen Problem Qualifiers (1) Congestive heart failure: Qualified Codes: I50.9 - Heart failure, unspecified Erich Calloway MD Oct 21, 2017 12:04
[2017-10-21] MEDS ORDERED: DEFIB EXTERNAL (16:26)
[2017-10-21] MEDS: ATORVASTATIN 10 MG TAB PO SCH (20:48)
[2017-10-22] VITALS (16 sets, daily range): BP systolic 82–103; BP diastolic 50–64; PULSE 56–78; RESP 16–19; TEMP 97.9–98.5; O2SAT 94–99
[2017-10-22] MEDS: methylPREDNISolone SOD SUCC 40 MG/1 ML VIAL IV PUSH SCH ×3 (01:54→12:24)
[2017-10-22] MEDS: NITROGLYCERIN 2% OINT 1 GM PACKET TOP SCH ×2 (02:00→08:40)
[2017-10-22] MEDS: RESP: ALBUTEROL 2.5 MG/IPRATROPIUM 0.5 MG NEB (SCH) NEB ×3 (03:36→14:51)
[2017-10-22] MEDS: LEVOTHYROXINE SODIUM 88 MCG TAB PO SCH (06:38)
[2017-10-22] MEDS: POTASSIUM CHLORIDE 20 MEQ CONTROLLED RELEASE TAB PO SCH (08:39)
[2017-10-22] MEDS: FUROSEMIDE 40 MG TAB PO SCH (08:39)
[2017-10-22] MEDS: guaiFENesin E.R. 600 MG TAB PO SCH (08:39)
[2017-10-22] MEDS: SODIUM CHLORIDE 0.9% FLUSH 10 ML FLUSH IV FLUSH SCH (08:39)
[2017-10-22] MEDS: CLOPIDOGREL 75 MG TAB PO SCH (08:39)
[2017-10-22] MEDS: PHENYTOIN SODIUM 100 MG CAP PO SCH ×2 (08:39→12:24)
[2017-10-22] MEDS: DOCUSATE SODIUM 50 MG/SENNA 8.6 MG TAB PO SCH (08:39)
[2017-10-22] MEDS: ASPIRIN 81 MG CHEW TAB PO SCH (08:39)
[2017-10-22] MEDS: FAMOTIDINE 20 MG TAB PO SCH (08:39)
[2017-10-22] MEDS: METOPROLOL TARTRATE 25 MG TAB PO SCH (08:40)
[2017-10-22] MEDS: LISINOPRIL 5 MG TAB PO SCH (08:40)
[2017-10-22] MEDS: REMOVE OLD PATCH T-DERMAL SCH (08:41)
[2017-10-22] MEDS: SODIUM CHLOR 0.9% 1000 ML INJ 1,000 ML IV SCH (09:59)
--- NOTE | 2017-10-22 10:14 | HHI.PR ---
Subjective Remarks PATIENT HAS BEEN CLEARED BY CARDIOLOGY AND MEDICINE BUT DOES NOT HAVE A LIFEVEST THAT CARDIOLOGY WANTS HIM TO HAVE AT DC HOPEFULLY HOME LATER TODAY HAS BEEN CLEARED BY MY [facility] YESTERDAY Objective Vitals Vital Signs Date Time Temp Pulse Resp B/P (MAP) Pulse Ox O2 Delivery O2 Flow Rate FiO2 10/22/17 09:00 63 10/22/17 08:00 78 10/22/17 07:00 94 Room Air 10/22/17 07:00 73 10/22/17 07:00 98.5 69 17 97/64 (75) 94 10/22/17 06:00 62 10/22/17 05:09 98.4 62 16 84/50 (61) 98 10/22/17 05:00 62 10/22/17 04:06 98 Room Air 10/22/17 04:06 59 10/22/17 03:00 56 10/22/17 02:00 59 82/53 (63) 10/22/17 02:00 56 10/22/17 01:00 60 10/22/17 00:00 56 10/22/17 00:00 98 Room Air 10/22/17 00:00 98.0 59 18 87/51 (63) 98 10/21/17 23:00 56 10/21/17 22:00 70 10/21/17 21:00 64 10/21/17 20:40 96 10/21/17 20:35 97 21 10/21/17 20:00 64 10/21/17 20:00 97 Room Air 10/21/17 20:00 98.0 65 18 95/56 (69) 97 10/21/17 19:00 66 10/21/17 18:00 67 10/21/17 17:00 72 10/21/17 16:00 60 10/21/17 15:00 98 Room Air 10/21/17 15:00 67 10/21/17 15:00 98.0 68 17 104/75 (85) 98 10/21/17 14:00 70 10/21/17 13:00 66 10/21/17 12:00 79 10/21/17 11:00 98.2 82 19 104/63 (77) 98 10/21/17 11:00 79 10/21/17 11:00 98 Room Air I/O 1/04/0210/21/17 10/21/17 10/22/17 10/22/17 10/22/17 07:00 15:00 23:00 07:00 15:00 23:00 Intake Total 1620 ml 720 ml 240 ml Output Total 460 ml 950 ml 500 ml Balance 1160 ml -230 ml -260 ml Intake Oral 620 ml 720 ml 240 ml IV Total 1000 ml Output Urine Total 460 ml 950 ml 500 ml Stool Total 0 ml # Bowel Movements 0 Result Diagram: 10/21/17 0419 10/21/17 0419 Other Results Laboratory Tests Test 10/19/17 13:16 10/19/17 17:33 10/20/17 00:52 10/20/17 04:33 Total Creatine Kinase 106 U/L 150 U/L 125 U/L Creatine Kinase MB 5.5 NG/ML 10.2 NG/ML 7.6 NG/ML Troponin I 1.00 NG/ML 2.34 NG/ML 2.21 NG/ML Phenytoin (Dilantin) Level 5.0 MCG/ML Thyroid Stimulating Hormone 3rd Gen 2.420 uIU/ML 1.990 uIU/ML Blood Urea Nitrogen 21 MG/DL Creatinine 0.91 MG/DL Random Glucose 117 MG/DL Total Protein 5.9 GM/DL Albumin 3.0 GM/DL Calcium Level 8.0 MG/DL Phosphorus Level 3.5 MG/DL Magnesium Level 1.9 MG/DL Alkaline Phosphatase 108 U/L Aspartate Amino Transf (AST/SGOT) 76 U/L Alanine Aminotransferase (ALT/SGPT) 210 U/L Total Bilirubin 0.4 MG/DL Sodium Level 142 MEQ/L Potassium Level 4.1 MEQ/L Chloride Level 107 MEQ/L Carbon Dioxide Level 25.7 MEQ/L Anion Gap 9 MEQ/L Estimat Glomerular Filtration Rate 86 ML/MIN Hemoglobin A1c 5.4 % Triglycerides Level 44 MG/DL Cholesterol Level 131 MG/DL LDL Cholesterol 71 MG/DL HDL Cholesterol 51.5 MG/DL Cholesterol/HDL Ratio 2.54 RATIO Free Thyroxine 1.32 NG/DL White Blood Count 10.1 TH/MM3 Red Blood Count 4.05 MIL/MM3 Hemoglobin 13.8 GM/DL Hematocrit 40.9 % Mean Corpuscular Volume 100.8 FL Mean Corpuscular Hemoglobin 34.0 PG Mean Corpuscular Hemoglobin Concent 33.7 % Red Cell Distribution Width 14.3 % Platelet Count 156 TH/MM3 Mean Platelet Volume 9.1 FL Neutrophils (%) (Auto) 81.0 % Lymphocytes (%) (Auto) 13.8 % Monocytes (%) (Auto) 4.8 % Eosinophils (%) (Auto) 0.1 % Basophils (%) (Auto) 0.3 % Neutrophils # (Auto) 8.2 TH/MM3 Lymphocytes # (Auto) 1.4 TH/MM3 Monocytes # (Auto) 0.5 TH/MM3 Eosinophils # (Auto) 0.0 TH/MM3 Basophils # (Auto) 0.0 TH/MM3 CBC Comment DIFF FINAL Differential Comment Test 10/20/17 12:09 10/21/17 04:19 Prothrombin Time 11.4 SEC Prothromb Time International Ratio 1.1 RATIO White Blood Count 9.5 TH/MM3 Red Blood Count 3.97 MIL/MM3 Hemoglobin 13.7 GM/DL Hematocrit 39.8 % Mean Corpuscular Volume 100.2 FL Mean Corpuscular Hemoglobin 34.5 PG Mean Corpuscular Hemoglobin Concent 34.4 % Red Cell Distribution Width 14.3 % Platelet Count 158 TH/MM3 Mean Platelet Volume 8.3 FL Neutrophils (%) (Auto) 74.2 % Lymphocytes (%) (Auto) 20.3 % Monocytes (%) (Auto) 4.8 % Eosinophils (%) (Auto) 0.2 % Basophils (%) (Auto) 0.5 % Neutrophils # (Auto) 7.1 TH/MM3 Lymphocytes # (Auto) 1.9 TH/MM3 Monocytes # (Auto) 0.5 TH/MM3 Eosinophils # (Auto) 0.0 TH/MM3 Basophils # (Auto) 0.0 TH/MM3 CBC Comment DIFF FINAL Differential Comment Blood Urea Nitrogen 21 MG/DL Creatinine 0.93 MG/DL Random Glucose 100 MG/DL Total Protein 5.8 GM/DL Albumin 3.1 GM/DL Calcium Level 8.2 MG/DL Phosphorus Level 2.6 MG/DL Magnesium Level 2.0 MG/DL Alkaline Phosphatase 104 U/L Aspartate Amino Transf (AST/SGOT) 54 U/L Alanine Aminotransferase (ALT/SGPT) 191 U/L Total Bilirubin 0.4 MG/DL Sodium Level 141 MEQ/L Potassium Level 4.1 MEQ/L Chloride Level 107 MEQ/L Carbon Dioxide Level 28.5 MEQ/L Anion Gap 6 MEQ/L Estimat Glomerular Filtration Rate 84 ML/MIN Total Creatine Kinase 76 U/L Imaging Last Impressions Chest X-Ray 10/19/17 0914 Signed Impressions: Service Date/Time: October 09:23 - CONCLUSION: 1. Cardiomegaly and findings of congestive heart failure. Cruz Lovell MD Objective Remarks GENERAL: Awake alert oriented 3 talkative and cooperative SKIN: Warm and dry. HEAD: Atraumatic. Normocephalic. EYES: Pupils equal and round. No scleral icterus. No injection or drainage. Extraocular muscles intact ENT: No nasal bleeding or discharge. Mucous membranes pink and moist. Oral mucosa is moist tongue is midline NECK: Trachea midline. No JVD. Supple CARDIOVASCULAR: Regular rate and rhythm. S1 and S2 no S3 or S4 RESPIRATORY: No accessory muscle use. Coarse breath sounds bilaterally Breath sounds equal bilaterally. GASTROINTESTINAL: Abdomen soft, non-tender, nondistended. Hepatic and splenic margins not palpable. MUSCULOSKELETAL: Extremities without clubbing, cyanosis, or edema. No obvious deformities. NEUROLOGICAL: Awake and alert. No obvious cranial nerve deficits. Motor grossly within normal limits. 4 out of 5 muscle strength in the arms and legs. Normal speech. PSYCHIATRIC: INAppropriate mood and affect; insight and judgment ABnormal. Procedures JUANA MOELLER M.D. DATE: 10/20/2017 PROCEDURE PERFORMED: Unsuccessful access of either femoral artery, right radial arterial access, coronary angiography, unsuccessful angioplasty of the circumflex occlusion. BRIEF HISTORY Cornell Leyva is a 57-year-old man who underwent stenting of the circumflex artery by Dr. Arguelles February 06, 2017. He was noncompliant with his Plavix. He has come in with congestive heart failure. He has been hypotensive. His cardiac enzymes are elevated. He is only 57 and so I decided to see if we can help him by revascularizing the circumflex. DESCRIPTION OF THE PROCEDURE IN DETAIL: He was brought to the cardiac medical laboratory assistant in a fasting state. Both groins were accessed but unable to pass a guidewire due to suspected iliac occlusions. I then went to the right radial arterial approach. Access was easily obtained. A Terumo slender sheath was inserted. Standard cocktail was administered. The cocktail included 200 micrograms of nitroglycerin, 2.5 milligrams of Verapamil and 2500 units of heparin. Coronary angiography was completed using a [place] catheter. The circumflex artery is totally occluded proximally just off the left main. It is the left dominant circulation. I then tried a BMW wire and was unable to cross with a Fielder XT even with a 2 mm balloon or back up I could not cross with a 2 mm balloon and a 15 gram Miracle Wire I got all the way to the stent with the wire and the balloon but when I got to the distal end of the stent, the wire would not pass freely and I figured out I was in a subintimal location. I dilated along the stent prior to this but I was unable to get the wire into an intraluminal position distally to open it up. I had to cancel the procedure. The patient tolerated the procedure well. There were no ischemic complications. The estimated blood loss was 30 cc. FINDINGS: 1. Hemodynamics: The aortic pressure is only 75/50 with a mean of 61. 2. Coronary angiography: The left main coronary artery appears normal. The left anterior descending artery has irregularities about 20% near the second septal and second diagonal branch. There are [id number] collaterals to the circumflex artery. The right coronary artery is nondominant and also provides a few collaterals to the circumflex artery. 3. Results of the intervention: Despite getting a wire and a balloon all the way through the occluded stent, I was not able to get into an intraluminal position distal to the stent to revascularize the circumflex. RECOMMENDATIONS: Medical management. PROGNOSIS: The prognosis at this time is poor because his blood pressure is low, he had a very poor left ventricular function and his dominant circumflex is totally occluded. Medications and IVs Current Medications Sodium Chloride (NS Flush) 2 ml UNSCH PRN IVF FLUSH AFTER USING IV ACCESS; Start 10/19/17 at 09:15; Stop 10/19/17 at 12:58; Status DC Methylprednisolone Sodium Succinate (SoluMEDROL INJ) 125 mg ONCE ONCE IV PUSH Last administered on 10/19/17at 10:50; Start 10/19/17 at 09:15; Stop 10/19/17 at 09: 17; Status DC Albuterol/ Ipratropium (Duoneb Neb) 1 ampule Q15M INH Last administered on at 09:27; Start 10/19/17 at 09:15; Stop 10/19/17 at 09:46; Status DC Sodium Chloride 500 ml @ 500 mls/hr BOLUS ONCE IV Last administered on at 10:49; Start 10/19/17 at 09:15; Stop 10/19/17 at 10:14; Status DC Aspirin (Aspirin Chew) 162 mg ONCE ONCE CHEW Last administered on 10/19/17at 11: 17; Start 10/19/17 at 10:30; Stop 10/19/17 at 10:31; Status DC Furosemide (Lasix Inj) 40 mg ONCE ONCE IV PUSH Last administered on 10/19/17at 11:18; Start 10/19/17 at 10:30; Stop 10/19/17 at 10:31; Status DC Enoxaparin Sodium (Lovenox Inj) 70 mg ONCE ONCE SQ Last administered on at 13:15; Start 10/19/17 at 11:30; Stop 10/19/17 at 11:31; Status DC Clonidine (Catapres) 0.1 mg Q4H PRN PO SBP>160, DBP>90; Start 10/19/17 at 12:30 ; Stop 10/19/17 at 13:53; Status DC Sodium Chloride (NS Flush) 2 ml BID IV FLUSH ; Start 10/19/17 at 21:00; Stop 10/19 at 21:00; Status DC Sodium Chloride (NS Flush) 2 ml UNSCH PRN IV FLUSH FLUSH AFTER USING IV ACCESS ; Start 10/19/17 at 12:30; Stop 10/19/17 at 12:58; Status DC Aspirin (Ecotrin Ec) 325 mg DAILY PO ; Start 10/20/17 at 09:00; Stop 10/20/17 at 09:00; Status DC Clopidogrel Bisulfate (Plavix) 75 mg DAILY PO Last administered on 10/22/17at 08: 39; Start 10/19/17 at 13:00 Nitroglycerin (Nitroglycerin 2% Oint) 1 inch Q6H TOP Last administered on at 08:40; Start 10/19/17 at 14:00 Nitroglycerin (Nitrostat Sl) 0.4 mg Q5M PRN SL CHEST PAIN; Start 10/19/17 at 12: 30 Acetaminophen (Tylenol) 650 mg Q6H PRN PO HEADACHE OR TEMP > 101 F; Start at 12:30 Alprazolam (Xanax) 0.25 mg Q8H PRN PO ANXIETY Last administered on 10/20/17at 22: 23; Start 10/19/17 at 12:30 Carvedilol (Coreg) 3.125 mg BID PO ; Start 10/19/17 at 21:00; Stop 10/20/17 at 10: 11; Status DC Atorvastatin Calcium (Lipitor) 10 mg HS PO Last administered on 10/21/17at 20:48 ; Start 10/19/17 at 21:00 Sodium Chloride (NS Flush) 2 ml UNSCH PRN IV FLUSH FLUSH AFTER USING IV ACCESS ; Start 10/19/17 at 12:30; Stop 10/20/17 at 19:06; Status DC Sodium Chloride (NS Flush) 2 ml BID IV FLUSH Last administered on 10/20/17at 08: 15; Start 10/19/17 at 21:00; Stop 10/20/17 at 19:06; Status DC Acetaminophen (Tylenol) 650 mg Q4H PRN PO TEMP > 100.4; Start 10/19/17 at 12:30 ; Stop 10/19/17 at 12:57; Status DC Ondansetron HCl (Zofran Inj) 4 mg Q6H PRN IVP NAUSEA OR VOMITING; Start at 12:30 Metoclopramide HCl (Reglan Inj) 5 mg Q6H PRN IV PUSH NAUSEA OR VOMITING; Start 10/19/17 at 12:30 Zolpidem Tartrate (Ambien) 5 mg HS PRN PO INSOMNIA; Start 10/19/17 at 12:30 Acetaminophen (Tylenol) 650 mg Q6H PRN PO PAIN SCALE 1 TO 2; Start 10/19/17 at 12:30 Oxycodone/ Acetaminophen (Percocet 5-325 Mg) 1 tab Q6H PRN PO PAIN SCALE 3 TO 5; Start 10/19/17 at 12:30 Oxycodone/ Acetaminophen (Percocet 10-325 Mg) 1 tab Q6H PRN PO PAIN SCALE 6 TO 10; Start 10/19/17 at 12:30 Morphine Sulfate (Morphine Inj) 2 mg Q3H PRN IV PUSH Pain 3-5; if unable to take PO; Start 10/19/17 at 12:30 Morphine Sulfate (Morphine Inj) 4 mg Q3H PRN IV PUSH Pain 6-10;if unable to take PO; Start 10/19/17 at 12:30 Naloxone HCl (Narcan Inj) 0.4 mg UNSCH PRN IV PUSH SEE LABEL COMMENTS; Start at 12:30 Senna/Docusate Sodium (Lillian-Colace) 1 tab BID PO Last administered on 10/22/17at 08:39; Start 10/19/17 at 21:00 Magnesium Hydroxide (Milk Of Magnesia Liq) 30 ml Q12H PRN PO Mild constipation ; Start 10/19/17 at 12:30 Sennosides (Senokot) 17.2 mg Q12H PRN PO Moderate constipation; Start 10/19/17 at 12:30 Bisacodyl (Dulcolax Supp) 10 mg DAILY PRN RECTAL SEVERE CONSITIPATION; Start at 12:30 Lactulose (Lactulose Liq) 30 ml DAILY PRN PO SEVERE CONSITIPATION; Start at 12:30 Flumazenil (Romazicon Inj) 0.2 mg Q1M PRN IV PUSH SEE LABEL COMMENTS; Start 10/19/17 at 12:30 Lorazepam (Ativan) 1 mg Q4H PRN PO CIWA 8 - 10; Start 10/19/17 at 12:30 Lorazepam (Ativan Inj) 1 mg Q4H PRN IV PUSH CIWA 8 - 10; Start 10/19/17 at 12:30 Lorazepam (Ativan) 2 mg Q2H PRN PO CIWA 11-14; Start 10/19/17 at 12:30 Lorazepam (Ativan Inj) 2 mg Q2H PRN IV PUSH CIWA 11-14; Start 10/19/17 at 12:30 Lorazepam (Ativan Inj) 2 mg Q1H PRN IV PUSH CIWA 15-20; Start 10/19/17 at 12:30 Lorazepam (Ativan Inj) 2 mg Q15M PRN IV PUSH CIWA > 20; Start 10/19/17 at 12:30 Haloperidol Lactate (Haldol Inj) 2 mg Q15M PRN IM SEE LABEL COMMENTS; Start 10/19/17 at 12:30 Furosemide (Lasix Inj) 40 mg BID@,18 IV PUSH Last administered on 10/20/17at 08 :13; Start 10/19/17 at 18:00; Stop 10/20/17 at 18:35; Status DC Guaifenesin (Mucinex Er) 600 mg BID PO Last administered on 10/22/17 08:39; Start 10/19/17 at 13:00 Methylprednisolone Sodium Succinate (SoluMEDROL INJ) 40 mg Q6HR IV PUSH Last administered on 10/22/17 01:54; Start 10/19/17 at 18:00 Nicotine (Habitrol 14 Mg Patch.24 Hr) 1 patch ONCE ONCE T-DERMAL Last administered on 10/19/17at 13:00; Start 10/19/17 at 13:00; Stop 10/20/17 at 10:10; Status DC Nicotine (Habitrol 14 Mg Patch.24 Hr) 1 patch DAILY T-DERMAL Last administered on 10/20/17 08:12; Start 10/20/17 at 09:00; Stop 10/20/17 at 10:10; Status DC Miscellaneous Information 1 DAILY T-DERMAL Last administered on 10/22/17at 08:41 ; Start 10/20/17 at 09:00 Albuterol/ Ipratropium (Duoneb Neb) 1 ampule Q6HR NEB NEB Last administered on 10/21/17 20:35; Start 10/19/17 at 16:00 Albuterol/ Ipratropium (Duoneb Neb) 1 ampule Q2HR NEB PRN NEB SHORTNESS OF BREATH; Start 10/19/17 at 12:30 Famotidine (Pepcid) 20 mg BID PO Last administered on 10/22/17at 08:39; Start 10/19/17 at 13:00 Enoxaparin Sodium (Lovenox Inj) 70 mg Q12H SQ Last administered on 10/20/17 08: 12; Start 10/19/17 at 21:00; Stop 10/20/17 at 10:10; Status DC Aspirin (Aspirin Chew) 81 mg DAILY PO Last administered on 10/22/17 08:39; Start 10/20/17 at 09:00 Clopidogrel Bisulfate (Plavix) 300 mg ONCE ONCE PO Last administered on 15:45; Start 10/19/17 at 14:00; Stop 10/19/17 at 14:15; Status DC Lisinopril (Prinivil) 5 mg DAILY PO Last administered on 10/22/17 08:40; Start 10/19/17 at 14:00 Levothyroxine Sodium (Synthroid) 88 mcg DAILY@0600 PO Last administered on at 06:38; Start 10/20/17 at 09:15 Phenytoin (Dilantin) 100 mg QID PO Last administered on 10/22/17 08:39; Start 10/20/17 at 13:00 Metoprolol Tartrate (Lopressor) 12.5 mg Q12HR PO Last administered on 10/22/17 08:40; Start 10/20/17 at 21:00 Sodium Chloride 1,000 ml @ 30 mls/hr Q24H IV Last administered on 10/20/17 14: 32; Start 10/20/17 at 10:00; Stop 10/25/17 at 09:59 Diphenhydramine HCl (Benadryl) 50 mg ASSEMBLER [employer]LECTRICAL PO ; Start 10/20/17 at 10:15; Stop 10/24/17 at 10:14 Diazepam (Valium) 5 mg ASSEMBLER [employer]IO [employer] ELECTRICAL PO ; Start 10/20/17 at 10:15; Stop 10/24/17 at 10: 14 Miscellaneous (Pill Splitter) 1 ea UNSCH PRN OTHER SEE LABEL COMMENTS; Start at 21:00 Heparin Sodium/ Sodium Chloride 1,000 ml @ As Directed STK-MED ONCE .ROUTE Last administered on 10/20/17 16:14; Start 10/20/17 at 16:14; Stop 10/20/17 at 16: 15; Status DC Midazolam HCl (Versed Inj) 2 mg STK-MED ONCE .ROUTE Last administered on 17:15; Start 10/20/17 at 16:32; Stop 10/20/17 at 16:33; Status DC Midazolam HCl (Versed Inj) 2 mg STK-MED ONCE .ROUTE Last administered on 17:32; Start 10/20/17 at 17:30; Stop 10/20/17 at 17:31; Status DC Verapamil HCl (Isoptin Inj) 5 mg STK-MED ONCE .ROUTE Last administered on 17:35; Start 10/20/17 at 17:32; Stop 10/20/17 at 17:33; Status DC Heparin Sodium (Porcine) (Heparin Inj) 10,000 units STK-MED ONCE .ROUTE Last administered on 10/20/17at 17:35; Start 10/20/17 at 17:32; Stop 10/20/17 at 17:33; Status DC Nitroglycerin 5 ml @ As Directed STK-MED ONCE .ROUTE Last administered on at 17:35; Start 10/20/17 at 17:32; Stop 10/20/17 at 17:33; Status DC Fentanyl Citrate (fentaNYL INJ) 100 mcg STK-MED ONCE .ROUTE Last administered on 10/20/17at 17:36; Start 10/20/17 at 17:35; Stop 10/20/17 at 17:36; Status DC Sodium Chloride 1,000 ml @ 83 mls/hr Q12H3M IV ; Start 10/20/17 at 18:29; Stop 10/21/17 at 00:28; Status DC Ondansetron HCl (Zofran Inj) 4 mg Q6H PRN IVP NAUSEA; Start 10/20/17 at 18:30 Sodium Chloride (NS Flush) 2 ml UNSCH PRN IV FLUSH FLUSH AFTER USING IV ACCESS ; Start 10/20/17 at 18:30 Sodium Chloride (NS Flush) 2 ml BID IV FLUSH Last administered on 10/22/17at 08: 39; Start 10/20/17 at 21:00 Miscellaneous Information 1 ONCE ONCE XX ; Start 10/20/17 at 18:30; Stop at 19:04; Status DC Furosemide (Lasix) 40 mg DAILY PO Last administered on 10/22/17at 08:39; Start at 09:00 Potassium Chloride (KCl) 20 meq DAILY PO Last administered on 10/22/17at 08:39; Start 10/21/17 at 09:00 A/P Problem List: (1) Tobacco abuse ICD Code: Z72.0 - Tobacco use (2) Noncompliance ICD Code: Z91.19 - Patient's noncompliance with other medical treatment and regimen (3) COPD (chronic obstructive pulmonary disease) ICD Code: J44.9 - Chronic obstructive pulmonary disease, unspecified (4) Seizure ICD Code: R56.9 - Unspecified convulsions (5) Hypothyroidism ICD Code: E03.9 - Hypothyroidism, unspecified (6) Coronary artery disease ICD Code: I25.10 - Atherosclerotic heart disease of [place] coronary artery without angina pectoris (7) NSTEMI (non-ST elevated myocardial infarction) ICD Code: I21.4 - Non-ST elevation (NSTEMI) myocardial infarction Status: Acute (8) Congestive heart failure ICD Code: I50.9 - Heart failure, unspecified Status: Acute Assessment and Plan Congestive heart failure Will diurese with Lasix will replace with potassium echocardiogram EF of 25% per echo HAD CATH BUT INTERVENTION WAS NOT ABLE TO BE DONE COPD continue on Mucinex Continue on steroids Continue on DuoNeb's Hold off on antibiotics at this time Hypothyroidism check TSH and free T4 obtain home medication dose of Synthroid Seizure disorder check a Dilantin level obtained his home dose of Dilantin and restart if able Non-ST elevation [place] consult cardiology Trend troponins Echo Aspirin and Plavix and Lovenox on beta blockers and jorge inhibitors if can tolerate Continue statin Has history of right circumflex stenting THAT IS OCCLUDED PER CATH Tobacco abuse recommend smoking cessation NicoDerm patch 14 mg daily ELEVATED LFTS MONITOR Dyslipidemia can continue on Lipitor Noncompliance recommend patient take his medications and follow-up after discharge - Consult case management DVT prophylaxis with Lovenox GI prophylaxis with Pepcid HAD CARDIAC CATH WAS NOT ABLE TO HAVE INTERVENTION Discussed with cardiology NEEDS LIFEVEST PER CARDIOLOGY HAS BEEN CLEARED FOR DC ONCE HAS LIFEVEST ON HIM Discharge Planning Pending PATIENT RECEIVING LIFEVEST PER CARDIOLOGY WISHES Problem Qualifiers (1) Congestive heart failure: Qualified Codes: I50.9 - Heart failure, unspecified Vinod Ladd DO Oct 22, 2017 10:14
[2017-10-22] MEDS ORDERED: LEVO88TA2 PO (10:16)
[2017-10-22] MEDS ORDERED: NICO21DI6 T-DERMAL (10:16)
[2017-10-22] MEDS ORDERED: DILA100C PO (10:16)
--- NOTE | 2017-10-26 10:54 | PQ ---
Physician Query Response Document PATIENT: CHELSY ZHANG : 1960 ADMIT DATE: 10/19/2017 11:42 AM DISCH DATE: 10/22/2017 3:15 PM RESPONDING PROVIDER #: PETER QUERY TEXT: CHF Acuity and Type Congestive Heart Failure is documented in the Medical Record. Please document the type and acuity (in cludes probable or suspected) Such as: Type: -- Systolic -- Diastolic -- Combined -- Other, please specify Acuity: -- Acute -- Chronic -- Acute on chronic -- Other, please specify PLEASE CALL [facility] @ [phone] FOR ASSISTANCE The patient's Clinical Indicators include: PER PROGRESS NOTE: Assessment and Plan Congestive heart failure Will diurese with Lasix will replace with potassium echocardiogram EF of 25% per echo Started on beta srinivasa and WILVER inhibitor 10/19/16 ECHO: The left ventricular systolic function is severely reduced with an estimated ejection fr action in the range of 25-30%. [id number] Query created by: Riri Louie on 10/20/2017 12:23 PM RESPONSE TEXT: Acute on chronic systolic congestive heart failure with ef of 25-30% Electronically signed by: Vinod Ladd 10/26/2017 10:50 AM
== END 2017-10-22 15:15 | disposition home or self-care (01) | DRG 280 ==
LOC: NEPC 08:56 → NEDA 11:42 → HCPC 14:42
PROVIDERS: ADMIT Hospitalist; ATTEND Hospitalist
PROC: 5A09357 Assistance with Respiratory Ventilation, Less than 24 Consecutive Hours, Continuous Positive Airway Pressure (ICD-10-PCS; principal; 2017-10-19)
PROC: B2111ZZ Fluoroscopy of Multiple Coronary Arteries using Low Osmolar Contrast (ICD-10-PCS; 2017-10-20)
DX: I21.4 Non-ST elevation (NSTEMI) myocardial infarction (principal); I50.23 Acute on chronic systolic (congestive) heart failure; J44.9 Chronic obstructive pulmonary disease, unspecified; E03.9 Hypothyroidism, unspecified; I25.10 Atherosclerotic heart disease of native coronary artery without angina pectoris; Z91.19 Patient's noncompliance with other medical treatment and regimen; F17.210 Nicotine dependence, cigarettes, uncomplicated; G40.909 Epilepsy, unspecified, not intractable, without status epilepticus; E78.5 Hyperlipidemia, unspecified; F12.90 Cannabis use, unspecified, uncomplicated
CPT/HCPCS: 71045; 76937; 80053; 80061; 80185; 82550; 82552; 82948; 83036; 83735; 83880; 84100; 84439; 84443; 84484; 85002; 85025; 85610; 92920; 93005; 93306; 93454; 94002; 94150; 94640; 94664; 96361; 96374; 96375; 99152; 99153; C1725; C1769; C1887; C1893; J1644; J1650; J1940; J2250; J2920; J2930; J3010; J7030; J7040; Q9967